=== PATIENT | female | born 1980 | race Caucasian/White ===

== ENCOUNTER 2018-12-22 16:46 | Observation (INO) ==
[2018-12-22 17:33] LABS: ABG Base Excess -0.7 mmol/L (-2.4-2.3); ABG HCO3 21.5 mmhg (22.0-26.0); ABG Oxygen Saturation 98 % (90-100); ABG PCO2 24.5 mmhg (35.0-45.0); ABG PO2 102.8 mmhg (80-100); ABG TCO2 22.2 mmhg (23-27)
[2018-12-22 17:34] LABS: Allen's Test Acceptable; Oxygen 3.5 LPM O2 NC %
[2018-12-22 17:37] LABS: ABG PH 7.56 mmol/L (7.35-7.45)
--- NOTE | 2018-12-22 18:05 | Emergency Department Note ---
ED Disposition Clinical Impression: COPD (chronic obstructive pulmonary disease), Congestive heart failure, Foot ulcer Disposition: Admitted as Observation Condition on Discharge: Good Referrals: Soha Lund [Primary Care Provider] - Time of Disposition: 19:36 - Critical Care Critical Care Time: No Attestation: On 12/22/18, the high probability of a clinically significant, sudden or life threatening deterioration of the following system(s) required my full and direct attention, intervention and personal management. The time I documented below is in addition to time spent performing reported procedures but includes the following listed in this critical care notation. Medical Decision Making - Medical Records Medical records reviewed: Yes: I reviewed the patient's medical records. - Cesar Inquiry Pt receiving controlled substance: No Cesar was queried for this patient: No Vital Signs: 12/22/18 17:03 12/22/18 17:32 12/22/18 17:53 Temperature 98.1 F Temperature Source Oral Pulse Rate 112 H Pulse Rate [Right Brachial] 133 H 124 H Respiratory Rate 28 H 20 Blood Pressure [Right Arm] 147/104 H 110/88 Blood Pressure Mean [Right Arm] 118 95 Blood Pressure Source [Right Arm] Automatic Cuff Automatic Cuff Blood Pressure Position [Right Arm] Sitting Sitting 02 Sat by Pulse Oximetry 96 Oxygen Delivery Method Room Air Nasal Cannula Oxygen Flow Rate (LPM) 3.5 12/22/18 18:46 Temperature Temperature Source Pulse Rate Pulse Rate [Right Brachial] 115 H Respiratory Rate 22 Blood Pressure [Right Arm] 144/93 H Blood Pressure Mean [Right Arm] 110 Blood Pressure Source [Right Arm] Automatic Cuff Blood Pressure Position [Right Arm] Sitting 02 Sat by Pulse Oximetry 94 L Oxygen Delivery Method Oxygen Flow Rate (LPM) - Lab Data Lab results reviewed: Yes: I reviewed the patient's lab results. Lab Results 12/22/18 17:20: Influenza Type A Ag Negative, Influenza Type B Ag Negative 12/22/18 17:29: Specimen Source Left radial, O2 % 3.5 lpm o2 nc, ABG pH 7.56 H*, ABG pCO2 24.5 L, ABG pO2 102.8 H, ABG HCO3 21.5 L, ABG Total CO2 22.2 L, ABG O2 Saturation 98, ABG Base Excess -0.7, Allan Test Acceptable 12/22/18 18:43: WBC 18.2 H, RBC 4.55, Hgb 13.3, Hct 41.3, MCV 90.9, MCH 29.2, M CHC 32.1, RDW 16.4, Plt Count 243, MPV 8.5, Neut % (Auto) 84.6 H, Lymph % (Auto) 11.5, [place] % (Auto) 3.2, Eos % (Auto) 0.4, Baso % (Auto) 0.2, Neut # (Auto) 15.4 H, Lymph # (Auto) 2.1, [place] # (Auto) 0.6, Eos # (Auto) 0.1, Baso # (Auto) 0.0, Total Counted 100, Neutrophils % (Manual) 87 H, Lymphocytes % (Manual) 9 L, Monocytes % (Manual) 4, Platelet Estimate Normal, RBC Morphology Normal 12/22/18 18:43: Sodium 141, Potassium 3.9, Chloride 103, Carbon Dioxide 26, Anion Gap 15.9 H, BUN 18, Creatinine 0.97, Estimated Creat Clear 66, Estimated GFR 65, Est GFR ( Amer) 78, Glucose 122 H, Calcium 9.3, Total Bilirubin 0.2, AST 59 H, ALT 100 H, Alkaline Phosphatase 86, Troponin I < 0.02, Total Protein 6.5, Albumin 3.1 L, Globulin 3.4 H, Albumin/Globulin Ratio 0.9 L 12/22/18 18:43: B-Natriuretic Peptide 33 12/22/18 18:43: Lactate 2.7 H Result diagrams: 12/22/18 18:43 12/22/18 18:43 Orders (Tests/Meds): ED MEDICATIONS Generic Name Dose Route Start Last Admin Trade Name Freq PRN Reason Stop Dose Admin Albuterol/Ipratropium 3 ml 12/22/18 18:15 12/22/18 18:18 Duoneb 3ml Neb IH 01/21/19 18:14 3 ml Q1H AZIZA Administration Discontinued Medications Generic Name Dose Route Start Last Admin Trade Name Freq PRN Reason Stop Dose Admin Methylprednisolone Sodium Succinate 125 mg 12/22/18 18:02 12/22/18 18:18 Solu-Medrol 125mg/2ml Vial IV 12/22/18 18:03 125 mg ONCE ONE Administration Morphine Sulfate 4 mg 12/22/18 18:46 12/22/18 18:52 Morphine 4mg/Ml Syringe IV 12/22/18 18:47 4 mg ONCE ONE Administration Ondansetron HCl 4 mg 12/22/18 18:12 12/22/18 18:18 Zofran 4mg/2ml Vial IV 12/22/18 18:13 4 mg ONCE ONE Administration ORDERS Category Date Time Status XR foot LT min 3V Stat Exams 12/22/18 18:04 Taken Blood Culture Stat Micro 12/22/18 18:43 Received Arterial Blood Gas Stat RT 12/22/18 17:11 Ordered General Adult HPI - General Chief complaint: Shortness of Breath/Dyspnea Stated complaint: soa dizziness, possible L foot infection Time Seen by Provider: 12/22/18 18:01 Mode of Arrival: Family Vehicle Source of Information: Patient, Relative Limitations: No Limitations Description of Symptoms (Recalled from ER Triage Doc. by RN): shortness of air, copd exacerbation, foot infection and pain; diarrhea x multiple days; fpc atb therapy - History of Present Illness HPI narrative: shortness of breath, sats at home 90% or less on 2 liters. wheezing, "filling up with fluids" - Related Data Home Medications Medication Instructions Recorded Confirmed Albuterol Sulfate [Albuterol HFA 1 puff INHALATION DAILY 02/25/18 12/22/18 Inhaler] Amlodipine Besylate 2.5 mg PO DAILY 02/25/18 12/22/18 Baclofen 20 mg PO DAILY 02/25/18 12/22/18 Calcium Carbonate/Vitamin D3 1 tab PO DAILY 02/25/18 12/22/18 [Calcium 600-Vit D3 400 Tablet] Ergocalciferol (Vitamin D2) 1 tab PO DAILY 02/25/18 12/22/18 [Drisdol 50,000 units (1.25mg) capsule] Fluticasone/Salmeterol [Advair 1 tab PO DAILY 02/25/18 12/22/18 500/50mcg diskus] Gabapentin [Gabapentin 800mg Tab] 800 mg PO QID 02/25/18 12/22/18 Montelukast Sodium [Montelukast 10 mg PO DAILY 02/25/18 12/22/18 10mg Tab] Pantoprazole Sodium [Protonix 40mg 40 mg PO DAILY 02/25/18 12/22/18 tablet] Quetiapine Fumarate 200 mg PO DAILY 02/25/18 12/22/18 Sucralfate [Carafate] 1 tab PO DAILY 02/25/18 12/22/18 Tiotropium [place] [Spiriva 1 puff INHALATION BID 02/25/18 12/22/18 Respimat] Topiramate 25 mg PO DAILY 02/25/18 12/22/18 Tramadol HCl [Ultram Take Home 1 tab PO DAILY 02/25/18 12/22/18 Pack 50mg (10)] clonazePAM [Clonazepam] 1 tab PO DAILY 02/25/18 12/22/18 hydrOXYzine HCl [Hydroxyzine HCl] 50 mg PO DAILY 02/25/18 12/22/18 hydroCHLOROthiazide [HCTZ 25mg 25 mg PO DAILY 02/25/18 12/22/18 tab] Furosemide [Furosemide 20mg Tab] 20 mg PO DAILY 07/16/18 12/22/18 Gabapentin 800 mg PO TID 07/16/18 12/22/18 Lisinopril [Lisinopril 20mg Tab] 20 mg PO DAILY 07/16/18 12/22/18 Oxycodone HCl/Acetaminophen 1 each PO TID 12/22/18 12/22/18 [Percocet 7.5-325 mg Tablet] Sulfamethoxazole/Trimethoprim 1 each PO BID 12/22/18 12/22/18 [Bactrim DS tablet] Sulfamethoxazole/Trimethoprim 1 each PO BID 12/22/18 12/22/18 [Bactrim DS tablet] Previous Rx's Medication Instructions Recorded Promethazine/Dextromethorphan 10 ml PO Q4HP PRN #240 ml 07/16/18 [Promethazine-Dm Syrup] Oxycodone HCl/Acetaminophen 1 each PO QID PRN 3 Days #12 tab 11/23/18 [Percocet 7.5-325 mg Tablet] Allergies Allergy/AdvReac Type Severity Reaction Status Date / Time ketorolac [From TORADOL] Allergy Intermediate Verified 02/15/18 20:50 cyclobenzaprine Allergy Unknown Verified 02/15/18 20:50 [From FLEXERIL] CONTRAST DYE Allergy Severe ANAPHYLAXIS Uncoded 04/23/17 14:49 SHELLFISH (FOOD) Allergy Intermediate ANAPHYLAXIS Uncoded 04/23/17 14:49 [facility] History - Hepatitis A Screen Drug use history?: No High risk sexual behaviors?: No History of sexually transmitted infection?: No Currently employed?: No Childcare worker?: No Do you have indoor plumbing?: Yes Do you have electricity?: Yes Attestation statement:: This patient has been screened for Hepatitis A risk factors. I have reviewed the patient's past medical history: Yes Medical History: Denies:: Diabetes Mellitus Type 1, Diabetes Mellitus Type 2 - Social History Smoking Status: Current every day smoker Tobacco Type: cigarettes # Packs/Day (cigarettes): 0 Alcohol Intake: never Occupational Status: other ROS Obtained: Yes All systems reviewed & no additional complaints - Constitutional Constitutional: Reports chills, Reports fever(s) - Cardiovascular Cardiovascular: Denies chest pain, Denies chest pain at rest, Reports diaphoresis, Reports dyspnea, Reports dyspnea on exertion - Respiratory Respiratory: Yes dyspnea, Yes dyspnea on exertion, Yes wheezing - Gastrointestinal Gastrointestingal: Reports: diarrhea, nausea - Musculoskeletal Musculoskeletal: Reports joint pain, Reports joint stiffness, Reports joint swelling, Reports other (open ulcer size of silver dollar, not grossly infected) - Integumentary/Breasts Skin/Breast: Reports skin ulcer Physical Exam - General General appearance: alert, in distress - Head Head exam: atraumatic, normocephalic, normal inspection - Eye Eye exam: Present: normal appearance, PERRL, EOMI - ENT ENT exam: Present: normal exam, normal oropharynx, mucous membranes moist, TM's normal bilaterally, normal external ear exam - Chest Chest inspection: Absent: tenderness - Respiratory Respiratory exam: Present: respiratory distress, wheezes - Cardiovascular Cardiovascular exam: Present: regular rate, normal rhythm. Absent: JVD - Abdominal Exam Abdominal exam: Present: soft, normal bowel sounds. Absent: distention, tenderness, guarding - Extremities Exam Extremities exam: Present: normal inspection, full ROM, normal capillary refill. Absent: calf tenderness - Back Exam Back exam: Present: normal inspection. Absent: tenderness - Neurological Exam Neurological exam: Present: alert, oriented X3 - Psychiatric Psychiatric exam: Present: normal affect, normal mood - Skin Skin exam: Present: dry, erythema. Absent: intact, normal color
[2018-12-22 18:55] LABS: Basophils % 0.2 % (0.1-2.0); Eosinophils # 0.1 K/mm3 (0.0-0.4); Eosinophils % 0.4 % (0.1-12.0); Hematocrit 41.3 % (37.0-47.0); Hemoglobin 13.3 g/dL (12.2-16.2); Lymphocytes # 2.1 K/mm3 (0.7-4.5); Lymphocytes % 11.5 % (10-50); Mean Corpuscular HGB Conc 32.1 g/dL (31.8-35.4); Mean Corpuscular Volume 90.9 fl (81-99); Mean Platelet Volume 8.5 fl (7.4-10.4); Monocytes # 0.6 K/mm3 (0.1-1.0); Monocytes % 3.2 % (1.7-9.3); Neutrophils # 15.4 K/mm3 (1.8-7.8); Neutrophils % 84.6 % (37.0-80.0); Platelet Count 243 K/mm3 (142-424); Red Blood Count 4.55 M/mm3 (4.20-5.40); Red Cell Distribution Width 16.4 % (11.5-17.5); White Blood Count 18.2 K/mm3 (4.8-10.8)
[2018-12-22 19:15] LABS: Lymphocytes % 9 % (10-50); Monocytes % 4 % (2-9); Neutrophils % 87 % (42-76); RBC Morphology Normal; Total Cells Counted 100
[2018-12-22 19:17] LABS: Alanine Aminotransferase 100 U/L (12-78); Albumin Level 3.1 gm/dL (3.4-5.0); Albumin/Globulin Ratio 0.9 (1.1-1.8); Alkaline Phosphatase 86 U/L (46-116); Anion Gap 15.9 mEq/L (5-15); Aspartate Amino Transferase 59 U/L (15-37); Bilirubin,Total 0.2 mg/dL (0.2-1.0); Blood Urea Nitrogen 18 mg/dL (7-18); Calcium 9.3 mg/dL (8.5-10.1); Carbon Dioxide 26 mmol/L (21.0-32.0); Chloride 103 mmol/L (98-107); Globulin 3.4 gm/dl (1.3-3.2); Glucose 122 mg/dL (74-106); Sodium 141 mmol/L (136-145); Total Protein,Serum 6.5 gm/dL (6.4-8.2)
[2018-12-23 06:06] LABS: Anion Gap 17.3 mEq/L (5-15); Calcium 8.5 mg/dL (8.5-10.1)
[2018-12-23 06:18] LABS: Mean Corpuscular HGB Conc 31.5 g/dL (31.8-35.4); Mean Corpuscular Volume 93.2 fl (81-99); Mean Platelet Volume 8.3 fl (7.4-10.4); Neutrophils % 89.5 % (37.0-80.0); Platelet Count 210 K/mm3 (142-424); Red Blood Count 4.07 M/mm3 (4.20-5.40); Red Cell Distribution Width 16.3 % (11.5-17.5)
[2018-12-23 06:19] LABS: Basophils % 0.1 % (0.1-2.0); Lymphocytes % 6.8 % (10-50); Monocytes # 0.4 K/mm3 (0.1-1.0); Monocytes % 2.8 % (1.7-9.3); Neutrophils # 13.4 K/mm3 (1.8-7.8)
--- NOTE | 2018-12-23 06:56 | History & Physical Report ---
*Admission Date: 12/22/18 *Chief complaint: SOA *History of present illness: 38 yo F with protracted history of unclear pulmonary diagnosis (IPF vs COPD versus severe asthma). She presented to the hospital due to worsening shortness of breath with sats at home less than 90 on 2 L of oxygen. States that she has been wheezing severely and having a hard time breathing due to concern for fluid overload. On initial assessment she was found to have concern for pneumonia on x-ray with respiratory alkalosis due to tachypnea and shallow breathing. Admitted to medicine for further management and initiated on antibiotics. Of note she was also found to have an infection on her foot and ulcer concerning for pressure wound with possible underlying osteomyelitis. On further history this morning, patient notes that she has been off and on of steroids for the better part of the past year. This led to weight gain of approximately 100-120 pounds. During this time she has had no significant improvement in her lung function and is continued to require oxygen. She also has had a fall as of August leading to a lesion on her foot that has been slow to heal. Lesion on the foot has continued to have purulent drainage per her report and she is concerned there is worsening infection. She has had prolonged and worsening debility due to chronic steroids and worsening respiratory function. At this time she lives with family locally. Most of her care previously has been at [facility] in [facility]. Her speech is very pressured and it is difficult to obtain a clear history from her. We will work on obtaining records from [facility] to further understand her medical history. Of note she has an extensive psychiatric history evidenced by the medication she is on from her home med list. Denies chest pain, nausea vomiting, diarrhea, fevers. [facility] History I have reviewed the patient's past medical history: Yes (Difficult to obtain however due to her poor timeline) Medical History: Reports:: Arrhythmia, Cardiomyopathy, Congestive Heart Failure, Hypertension, Palpitations Denies:: Cancer, Diabetes Mellitus Type 1, Diabetes Mellitus Type 2, MRSA *Have you ever received a pneumonia vaccine?: Yes (04/2018) *Have you received a flu vaccine this season?: No (outside of flu season) Other Surgeries: Yes: Cholecystectomy, (x 3) Amputation: No Fractures: No - *Social History Educational Level: Attended College Smoking Status: Current every day smoker Tobacco Type: cigarettes # Packs/Day (cigarettes): 1 Alcohol Intake: former Alcohol Intake Frequency:: 3 or more drinks per day *Occupational Status:: disabled *Travel in the last 8 weeks: None - Psychiatric History Expresses thoughts of harming self/others: None Suicide Plan Description: No Plan Family Hx:: Coronary Artery Disease, Diabetes, Hypertension Review of Systems - Review of Systems Review of systems:: pertinent systems reviewed and negative unless documented below Meds Home Medications Medication Instructions Recorded Confirmed Type Albuterol Sulfate [Albuterol HFA 2 puff INHALATION Q4-6H PRN 02/25/18 12/22/18 History Inhaler] Baclofen 10 mg PO BID 02/25/18 12/23/18 History Montelukast Sodium [Montelukast 10 mg PO HS 02/25/18 12/22/18 History 10mg Tab] Pantoprazole Sodium [Protonix 40mg 80 mg PO DAILY 02/25/18 12/23/18 History tablet] Amitriptyline HCl [Elavil 50mg 25 mg PO DAILY 12/22/18 12/23/18 History tablet] Bumetanide [Bumex 1mg tablet] 1 mg PO BID 12/22/18 12/22/18 History Fluoxetine HCl [Prozac 20mg 20 mg PO DAILY 12/22/18 12/23/18 History Capsule] Ipratropium/Albuterol Sulfate 3 ml IH Q4RT 12/22/18 12/22/18 History [Duoneb 3mL neb] LORazepam [Ativan 1mg tablet] 1 mg PO 5XDAY PRN 12/22/18 12/22/18 History Pregabalin [Lyrica] 50 mg PO TID 12/22/18 12/22/18 History Spironolactone [Spironolactone 25 mg PO DAILY 12/22/18 12/22/18 History 25mg Tablet] Doxycycline Hyclate [Doxycycline 100 mg PO BID 12/23/18 12/23/18 History 100mg Capsule] Fluticasone Propion/Salmeterol 1 puff IH BID 12/23/18 12/23/18 History [Wixela 500-50 Inhub] Metformin HCl 500 mg PO DAILY 12/23/18 12/23/18 History Ondansetron [Zofran 4mg ODT] 4 mg PO Q6HP PRN 12/23/18 12/23/18 History Oxycodone HCl/Acetaminophen 1 tab PO Q6H PRN 12/23/18 12/23/18 History [Percocet 5/325mg tablet] Promethazine HCl 1 - 2 tab PO Q6HP PRN 12/23/18 12/23/18 History predniSONE [Deltasone 10mg tablet] 10 mg PO DIRECTED 12/23/18 12/23/18 History Allergies Allergy/AdvReac Type Severity Reaction Status Date / Time haloperidol [From Haldol] Allergy Severe extrapyrimidal Verified 12/22/18 21:02 effects cyclobenzaprine Allergy Intermediate Hives Verified 12/22/18 21:02 [From FLEXERIL] ketorolac [From TORADOL] Allergy Intermediate Hives Verified 12/22/18 21:02 CONTRAST DYE Allergy Severe ANAPHYLAXIS Uncoded 04/23/17 14:49 SHELLFISH (FOOD) Allergy Intermediate ANAPHYLAXIS Uncoded 04/23/17 14:49 Exam Vital signs and Labs for Last 24 Hours: Temp Pulse Resp BP Pulse Ox 97.8 F 102 H 20 120/68 93 L 12/23/18 04:00 12/23/18 06:25 12/23/18 04:00 12/23/18 04:00 12/23/18 06:25 Laboratory Results - last 24 hr 12/22/18 17:20: Influenza Type A Ag Negative, Influenza Type B Ag Negative 12/22/18 17:29: Specimen Source Left radial, O2 % 3.5 lpm o2 nc, ABG pH 7.56 H*, ABG pCO2 24.5 L, ABG pO2 102.8 H, ABG HCO3 21.5 L, ABG Total CO2 22.2 L, ABG O2 Saturation 98, ABG Base Excess -0.7, Allan Test Acceptable 12/22/18 18:43: WBC 18.2 H, RBC 4.55, Hgb 13.3, Hct 41.3, MCV 90.9, MCH 29.2, MCHC 32.1, RDW 16.4, Plt Count 243, MPV 8.5, Neut % (Auto) 84.6 H, Lymph % (Auto) 11.5, [place] % (Auto) 3.2, Eos % (Auto) 0.4, Baso % (Auto) 0.2, Neut # (Auto) 15.4 H, Lymph # (Auto) 2.1, [place] # (Auto) 0.6, Eos # (Auto) 0.1, Baso # (Auto) 0.0, Total Counted 100, Neutrophils % (Manual) 87 H, Lymphocytes % (Man ual) 9 L, Monocytes % (Manual) 4, Platelet Estimate Normal, RBC Morphology Normal 12/22/18 18:43: Sodium 141, Potassium 3.9, Chloride 103, Carbon Dioxide 26, Anion Gap 15.9 H, BUN 18, Creatinine 0.97, Estimated Creat Clear 66, Estimated GFR 65, Est GFR ( Amer) 78, Glucose 122 H, Calcium 9.3, Total Bilirubin 0.2, AST 59 H, ALT 100 H, Alkaline Phosphatase 86, Troponin I < 0.02, Total Protein 6.5, Albumin 3.1 L, Globulin 3.4 H, Albumin/Globulin Ratio 0.9 L 12/22/18 18:43: B-Natriuretic Peptide 33 12/22/18 18:43: Lactate 2.7 H 12/22/18 23:10: Lactate 3.3 H 12/23/18 00:20: Lactate 6.6 H 12/23/18 05:40: WBC 15.0 H, RBC 4.07 L, Hgb 12.0 L, Hct 38.0, MCV 93.2, MCH 29.4, MCHC 31.5 L, RDW 16.3, Plt Count 210, MPV 8.3, Neut % (Auto) 89.5 H, Lymph % (Auto) 6.8 L, [place] % (Auto) 2.8, Eos % (Auto) 0.0 L, Baso % (Auto) 0.1, Neut # (Auto) 13.4 H, Lymph # (Auto) 1.0, [place] # (Auto) 0.4, Eos # (Auto) 0.0, Baso # (Auto) 0.0 12/23/18 05:40: Sodium 137, Potassium 4.3, Chloride 101, Carbon Dioxide 23, Anion Gap 17.3 H, BUN 20 H, Creatinine 1.17 H D, Estimated Creat Clear 50, Estimated GFR 52 L, Est GFR ( Amer) 63, Glucose 243 H D, Calcium 8.5 I & O for Last 24 hours: Intake & Output 12/20/18 12/21/18 12/22/18 12/23/18 23:59 23:59 23:59 23:59 Intake Total 50 / 50 1600 / 1600 Output Total 500 / 500 Balance 50 / -150 1100 / 1100 Weight 120.826 kg 120.826 kg - Constitutional mild distress, morbidly obese - *Routine HEENT Exam Head: Present: cushingoid faces Eye: Present: EOMI, PERRL ENT: Present: mucous membranes moist - *Routine Neck Exam Present: supple. Absent: lymphadenopathy - *Routine Respiratory Exam Present: prolonged expiratory phase, crackles (LLL). Absent: rhonchi, wheezes - *Routine Cardiovascular Exam Present: RRR - *Routine Abdominal Exam Present: soft, normoactive bowel sounds. Absent: tenderness - *Routine Extremities Exam Absent: cyanosis, clubbing, edema Comments: Ulcerated wound dorsum of left foot - *Routine Skin Exam Present: warm. Absent: rash Comments: Striae on arms and abdomen - *Routine Neurological Exam Present: alert, oriented X3. Absent: motor deficit, altered mental status - Routine Psychiatric Exam Comments: Pressured speech, tangential Assessment and Plan (1) Chronic steroid use Current visit: Yes Status: Acute Category: Medical Steroids for over a year. Pharmacology assisting in identifying full duration of therapy. Will review records from outside institution. Resume steroid use of stress dose of 20 mg daily. Pharmacy to assist with planned taper (2) Morbid obesity Current visit: Yes Status: Chronic Category: Medical Code(s): E66.01 - Morbid (severe) obesity due to excess calories Complicates all aspects of her care. Secondary to steroid use (3) COPD (chronic obstructive pulmonary disease) Current visit: Yes Status: Chronic Category: Medical Code(s): J44.9 - Chronic obstructive pulmonary disease, unspecified (4) Cellulitis of left foot Current visit: Yes Status: Acute Category: Medical Code(s): L03.116 - Cellulitis of left lower limb (5) Foot ulcer Current visit: Yes Status: Chronic Qualifiers: Laterality: left Non-pressure ulcer stage: limited to breakdown of skin Qualified Code(s): L97.521 - Non-pressure chronic ulcer of other part of left foot limited to breakdown of skin Category: Medical Code(s): L97.509 - Non-pressure chronic ulcer of other part of unspecified foot with unspecified severity (6) Sepsis Current visit: Yes Status: Acute Qualifiers: Sepsis type: sepsis due to unspecified organism Category: Medical Code(s): A41.9 - Sepsis, unspecified organism Pneumonia, ulceration of foot, elevated white count, tachycardia, tachypnea. Cultures obtained. Fluids administered. Antibiotics on board. Continue to monitor for defervescence. De-escalation of antibiotics when appropriate. (7) Ulcer of left foot due to type 2 diabetes mellitus Current visit: Yes Status: Chronic Category: Medical Code(s): E11.621 - Type 2 diabetes mellitus with foot ulcer; L97.529 - Non-pressure chronic ulcer of other part of left foot with unspecified severity Present for several months, podiatry consulted. Debrided at bedside. No surgical intervention at this time. Continue antibiotics for cellulitis. (8) Acute respiratory alkalosis Current visit: Yes Status: Acute Category: Medical Code(s): E87.3 - Alkalosis Due to tachypnea with shallow breathing. Anticipate improvement with addressing underlying respiratory infection and distress. (9) Pneumonia Current visit: Yes Status: Acute Qualifiers: Laterality: left Lung location: lower lobe of lung Category: Medical Code(s): J18.9 - Pneumonia, unspecified organism Suspected source of sepsis and respiratory failure. Continue antibiotics. Initiated steroids due to chronic steroid use. Monitor for improvement. Supplemental oxygen as needed for goal sats greater than 92 while awake, greater than 88 while asleep - Assessment and plan all Dx Assessment and Plan for all problems:: Critically ill. Requires continued inpatient management. Prognosis fair. Will have physical therapy and occupational therapy assess patient as she may benefit from placement in [facility] given level of debility at home and immobility.
--- NOTE | 2018-12-23 07:59 | Pharmacy Consult Notes ---
[facility] Pharmacy VTE Monitoring - Patient Demographics Admission date: 12/22/18 Report Date: 12/23/18 Time: 07:59 Allergies/Adverse Reactions: Patient Allergies haloperidol [From Haldol] Allergy (Severe, Verified 12/22/18 21:02) extrapyrimidal effects cyclobenzaprine [From FLEXERIL] Allergy (Intermediate, Verified 12/22/18 21:02) Hives ketorolac [From TORADOL] Allergy (Intermediate, Verified 12/22/18 21:02) Hives CONTRAST DYE Allergy (Severe, Uncoded 04/23/17 14:49) ANAPHYLAXIS SHELLFISH (FOOD) Allergy (Intermediate, Uncoded 04/23/17 14:49) ANAPHYLAXIS Height: 1.55 m Weight: 120.826 kg Patient Problems: Current Active Problems COPD (chronic obstructive pulmonary disease) (Acute) Foot ulcer (Acute) Congestive heart failure (Acute) Sepsis (Acute) - VTE Risk Labs: VTE Related Lab Results Hgb 12.0 g/dL (12.2-16.2) L 12/23/18 05:40 Hct 38.0 % (37.0-47.0) 12/23/18 05:40 Plt Count 210 K/mm3 (142-424) 12/23/18 05:40 BUN 20 mg/dL (7-18) H 12/23/18 05:40 Creatinine 1.17 mg/dL (0.55-1.02) H D 12/23/18 05:40 Estimated Creat Clear 50 mL/min (50-200) 12/23/18 05:40 Was VTE Risk Assessment Performed: Yes VTE Score: 8 VTE Risk Level: Moderate Risk - Prophylaxis VTE Prophylaxis Ordered?: Yes Types of VTE Prophylaxis: TEDS Knee High Location of Applied Device: Bilateral Lower Extremeties - VTE Diagnosis Confirmed Treatment or plan recommended: Continue Current Treatment
[2018-12-23 08:27] LABS: Lymphocytes % 7 % (10-50); Monocytes % 2 % (2-9); Neutrophils % 90 % (42-76); Total Cells Counted 100
--- NOTE | 2018-12-23 12:33 | Consult Report ---
*Admission Date: 12/22/18 *Reason for consult:: Left foot DM ulcer *History of present illness: Ms. Ro is a 38-year-old female who was admitted 12/22/18 for shortness of breath, COPD exacerbation and a left foot ulcer. Patient states that she has had the ulcer several months now. She states it started 3-4 months ago as a skin abrasion which kept getting larger. Patient states that she is seeing Dr. Kumar in [facility]. She was doing local wound care with antibiotics. She reports wound cultures growing Pseudomonas. She was on a variety of oral antibiotics at least 3 different ones, patient unsure which. She states that Dr. Kumar performed 2 different surgeries on her with a wound debridement and the second surgery included wound debridement with a placement of a placental amniotic graft. She states there was infection in the graft "did not work". He states that he has been an open sore now for several months and it has never closed. She reports tenderness directly to the ulcer. The redness and swelling comes and goes. She denies having an MRI or bone biopsy. Review of Systems - Review of Systems Review of systems:: pertinent systems reviewed and negative unless documented below - Constitutional Reports fatigue - Eyes Denies blurry vision - ENT Denies abnormal hearing - *Cardiovascular Reports shortness of breath, Denies chest pain - *Respiratory Reports shortness of breath - *Gastrointestinal Denies abdominal pain, Denies vomiting - *Genitourinary Denies difficulty urinating - *Musculoskeletal Reports joint swelling, Reports tingling - Integumentary/Breasts Reports change in hair, Reports non-healing lesions, Reports skin ulcer - *Neurologic Reports tingling/numbness/burning sensations - Psychiatric Reports anxiety - Endocrine Reports cold intolerance - Hematologic/Lymphatic Reports easy bruising [facility] History I have reviewed the patient's past medical history: Yes Medical History: Reports:: Arrhythmia, Cardiomyopathy, Congestive Heart Failure, Hypertension, Palpitations Denies:: Cancer, Diabetes Mellitus Type 1, Diabetes Mellitus Type 2, MRSA *Have you ever received a pneumonia vaccine?: Yes (04/2018) *Have you received a flu vaccine this season?: No (outside of flu season) Other Surgeries: Yes: Cholecystectomy, (x 3) Amputation: No Fractures: No - *Social History Educational Level: Attended College Smoking Status: Current every day smoker Tobacco Type: cigarettes # Packs/Day (cigarettes): 1 Alcohol Intake: former Alcohol Intake Frequency:: 3 or more drinks per day *Occupational Status:: disabled *Travel in the last 8 weeks: None - Psychiatric History Expresses thoughts of harming self/others: None Suicide Plan Description: No Plan Family Hx:: Coronary Artery Disease, Diabetes, Hypertension Meds Home Medications Medication Instructions Recorded Confirmed Type Albuterol Sulfate [Albuterol HFA 2 puff INHALATION Q4-6H PRN 02/25/18 12/22/18 History Inhaler] Baclofen 10 mg PO BID 02/25/18 12/23/18 History Montelukast Sodium [Montelukast 10 mg PO HS 02/25/18 12/22/18 History 10mg Tab] Pantoprazole Sodium [Protonix 40mg 80 mg PO DAILY 02/25/18 12/23/18 History tablet] Amitriptyline HCl [Elavil 50mg 25 mg PO DAILY 12/22/18 12/23/18 History tablet] Bumetanide [Bumex 1mg tablet] 1 mg PO BID 12/22/18 12/22/18 History Fluoxetine HCl [Prozac 20mg 20 mg PO DAILY 12/22/18 12/23/18 History Capsule] Ipratropium/Albuterol Sulfate 3 ml IH Q4RT 12/22/18 12/22/18 History [Duoneb 3mL neb] LORazepam [Ativan 1mg tablet] 1 mg PO 5XDAY PRN 12/22/18 12/22/18 History Pregabalin [Lyrica] 50 mg PO TID 12/22/18 12/22/18 History Spironolactone [Spironolactone 25 mg PO DAILY 12/22/18 12/22/18 History 25mg Tablet] Doxycycline Hyclate [Doxycycline 100 mg PO BID 12/23/18 12/23/18 History 100mg Capsule] Fluticasone Propion/Salmeterol 1 puff IH BID 12/23/18 12/23/18 History [Wixela 500-50 Inhub] Metformin HCl 500 mg PO DAILY 12/23/18 12/23/18 History Ondansetron [Zofran 4mg ODT] 4 mg PO Q6HP PRN 12/23/18 12/23/18 History Oxycodone HCl/Acetaminophen 1 tab PO Q6H PRN 12/23/18 12/23/18 History [Percocet 5/325mg tablet] Promethazine HCl 1 - 2 tab PO Q6HP PRN 12/23/18 12/23/18 History predniSONE [Deltasone 10mg tablet] 10 mg PO DIRECTED 12/23/18 12/23/18 History Allergies Allergy/AdvReac Type Severity Reaction Status Date / Time haloperidol [From Haldol] Allergy Severe extrapyrimidal Verified 12/22/18 21:02 effects cyclobenzaprine Allergy Intermediate Hives Verified 12/22/18 21:02 [From FLEXERIL] ketorolac [From TORADOL] Allergy Intermediate Hives Verified 12/22/18 21:02 CONTRAST DYE Allergy Severe ANAPHYLAXIS Uncoded 04/23/17 14:49 SHELLFISH (FOOD) Allergy Intermediate ANAPHYLAXIS Uncoded 04/23/17 14:49 Exam Vital signs and Labs for Last 24 Hours: Temp Pulse Resp BP Pulse Ox 98.4 F 108 H 18 129/79 96 12/23/18 08:00 12/23/18 10:15 12/23/18 08:00 12/23/18 08:00 12/23/18 10:15 Laboratory Results - last 24 hr 12/22/18 17:20: Influenza Type A Ag Negative, Influenza Type B Ag Negative 12/22/18 17:29: Specimen Source Left radial, O2 % 3.5 lpm o2 nc, ABG pH 7.56 H*, ABG pCO2 24.5 L, ABG pO2 102.8 H, ABG HCO3 21.5 L, ABG Total CO2 22.2 L, ABG O2 Saturation 98, ABG Base Excess -0.7, Allan Test Acceptable 12/22/18 18:43: WBC 18.2 H, RBC 4.55, Hgb 13.3, Hct 41.3, MCV 90.9, MCH 29.2, MCHC 32.1, RDW 16.4, Plt Count 243, MPV 8.5, Neut % (Auto) 84.6 H, Lymph % (Auto) 11.5, Moca % (Auto) 3.2, Eos % (Auto) 0.4, Baso % (Auto) 0.2, Neut # (Auto) 15.4 H, Lymph # (Auto) 2.1, Moca # (Auto) 0.6, Eos # (Auto) 0.1, Baso # (Auto) 0.0, Total Counted 100, Neutrophils % (Manual) 87 H, Lymphocytes % (Manual) 9 L, Monocytes % (Manual) 4, Platelet Estimate Normal, RBC Morphology Normal 12/22/18 18:43: Sodium 141, Potassium 3.9, Chloride 103, Carbon Dioxide 26, Anion Gap 15.9 H, BUN 18, Creatinine 0.97, Estimated Creat Clear 66, Estimated GFR 65, Est GFR ( Amer) 78, Glucose 122 H, Calcium 9.3, Total Bilirubin 0.2, AST 59 H, ALT 100 H, Alkaline Phosphatase 86, Troponin I < 0.02, Total Protein 6.5, Albumin 3.1 L, Globulin 3.4 H, Albumin/Globulin Ratio 0.9 L 12/22/18 18:43: B-Natriuretic Peptide 33 12/22/18 18:43: Lactate 2.7 H 12/22/18 23:10: Lactate 3.3 H 12/23/18 00:20: Lactate 6.6 H 12/23/18 05:40: WBC 15.0 H, RBC 4.07 L, Hgb 12.0 L, Hct 38.0, MCV 93.2, MCH 29.4, MCHC 31.5 L, RDW 16.3, Plt Count 210, MPV 8.3, Neut % (Auto) 89.5 H, Lymph % (Auto) 6.8 L, Moca % (Auto) 2.8, Eos % (Auto) 0.0 L, Baso % (Auto) 0.1, Neut # (Auto) 13.4 H, Lymph # (Auto) 1.0, Moca # (Auto) 0.4, Eos # (Auto) 0.0, Baso # (Auto) 0.0, Total Counted 100, Neutrophils % (Manual) 90 H, Band Neutrophils % 1.0, Lymphocytes % (Manual) 7 L, Monocytes % (Manual) 2, Platelet Estimate Normal 12/23/18 05:40: Sodium 137, Potassium 4.3, Chloride 101, Carbon Dioxide 23, Anion Gap 17.3 H, BUN 20 H, Creatinine 1.17 H D, Estimated Creat Clear 50, Estimated GFR 52 L, Est GFR ( Amer) 63, Glucose 243 H D, Calcium 8.5 12/23/18 05:40: ESR 18 12/23/18 05:40: C-Reactive Protein 1.2 H 12/23/18 05:40: Hemoglobin A1c 8.0 H I & O for Last 24 hours: Intake & Output 12/21/18 12/22/18 12/23/18 12/24/18 11:59 11:59 11:59 11:59 Intake Total 2130 / 2130 Output Total 500 / 500 Balance 1630 / 1630 Weight 266 lb 6 oz - *Routine HEENT Exam Head: Present: normocephalic - *Routine Neck Exam Present: supple - *Routine Respiratory Exam Present: accessory muscle use. Absent: respiratory distress - *Routine Cardiovascular Exam Present: RRR - *Routine Abdominal Exam Present: soft. Absent: guarding - *Routine Rectal Exam Patient deferred: visual exam - *Routine Exam Patient deferred: external exam - *Routine Extremities Exam Present: edema, pulses intact - *Routine Skin Exam Present: wounds - *Routine Neurological Exam Present: alert, moving all extremities - Routine Psychiatric Exam Present: anxious - Detailed Lower Extremity Exam Top foot image: 1 - Left foot ulcer: There is an area of edema and erythema to the dorsal left foot. The area measures approximately 3 x 4 cm. Within the red area there is an ulcer with mixed wound base. Wound base is 50% granular, 50% fibrotic tissue. The ulcer measures approximately 2.2 x 1.6 x 0.4 cm. There is no purulence, malodor and no sinus tracking. No drainage noted. POP. Comments: Skin temp wnl. CFT and palpable pedal pulses noted. No calf or thigh pain noted b/l. POP to left dorsal foot around ulcer. Results - Labs Result Diagrams: 12/23/18 05:40 12/23/18 05:40 Labs: Abnormal lab results 12/22/18 12/22/18 12/22/18 Range/Units 17:29 18:43 18:43 WBC 18.2 H (4.8-10.8) K/mm3 RBC (4.20-5.40) M/mm3 Hgb (12.2-16.2) g/dL MCHC (31.8-35.4) g/dL Neut % (Auto) 84.6 H (37.0-80.0) % Lymph % (Auto) (10-50) % Eos % (Auto) (0.1-12.0) % Neut # (Auto) 15.4 H (1.8-7.8) K/mm3 Neutrophils % (Manual) 87 H (42-76) % Lymphocytes % (Manual) 9 L (10-50) % ABG pH 7.56 H* (7.35-7.45) mmol/L ABG pCO2 24.5 L (35.0-45.0) mmhg ABG pO2 102.8 H (80-100) mmhg ABG HCO3 21.5 L (22.0-26.0) mmhg ABG Total CO2 22.2 L (23-27) mmhg Anion Gap 15.9 H (5-15) mEq/L BUN (7-18) mg/dL Creatinine (0.55-1.02) mg/dL Estimated GFR (>60) ml/min Glucose 122 H (74-106) mg/dL Hemoglobin A1c (0.0-7.0) % Lactate (0.4-2.0) mmol/L AST 59 H (15-37) U/L ALT 100 H (12-78) U/L C-Reactive Protein (0.0-0.9) mg/dL Albumin 3.1 L (3.4-5.0) gm/dL Globulin 3.4 H (1.3-3.2) gm/dl Albumin/Globulin Ratio 0.9 L (1.1-1.8) 12/22/18 12/22/18 12/23/18 Range/Units 18:43 23:10 00:20 WBC (4.8-10.8) K/mm3 RBC (4.20-5.40) M/mm3 Hgb (12.2-16.2) g/dL MCHC (31.8-35.4) g/dL Neut % (Auto) (37.0-80.0) % Lymph % (Auto) (10-50) % Eos % (Auto) (0.1-12.0) % Neut # (Auto) (1.8-7.8) K/mm3 Neutrophils % (Manual) (42-76) % Lymphocytes % (Manual) (10-50) % ABG pH (7.35-7.45) mmol/L ABG pCO2 (35.0-45.0) mmhg ABG pO2 (80-100) mmhg ABG HCO3 (22.0-26.0) mmhg ABG Total CO2 (23-27) mmhg Anion Gap (5-15) mEq/L BUN (7-18) mg/dL Creatinine (0.55-1.02) mg/dL Estimated GFR (>60) ml/min Glucose (74-106) mg/dL Hemoglobin A1c (0.0-7.0) % Lactate 2.7 H 3.3 H 6.6 H (0.4-2.0) mmol/L AST (15-37) U/L ALT (12-78) U/L C-Reactive Protein (0.0-0.9) mg/dL Albumin (3.4-5.0) gm/dL Globulin (1.3-3.2) gm/dl Albumin/Globulin Ratio (1.1-1.8) 12/23/18 12/23/18 12/23/18 Range/Units 05:40 05:40 05:40 WBC 15.0 H (4.8-10.8) K/mm3 RBC 4.07 L (4.20-5.40) M/mm3 Hgb 12.0 L (12.2-16.2) g/dL MCHC 31.5 L (31.8-35.4) g/dL Neut % (Auto) 89.5 H (37.0-80.0) % Lymph % (Auto) 6.8 L (10-50) % Eos % (Auto) 0.0 L (0.1-12.0) % Neut # (Auto) 13.4 H (1.8-7.8) K/mm3 Neutrophils % (Manual) 90 H (42-76) % Lymphocytes % (Manual) 7 L (10-50) % ABG pH (7.35-7.45) mmol/L ABG pCO2 (35.0-45.0) mmhg ABG pO2 (80-100) mmhg ABG HCO3 (22.0-26.0) mmhg ABG Total CO2 (23-27) mmhg Anion Gap 17.3 H (5-15) mEq/L BUN 20 H (7-18) mg/dL Creatinine 1.17 H D (0.55-1.02) mg/dL Estimated GFR 52 L (>60) ml/min Glucose 243 H D (74-106) mg/dL Hemoglobin A1c (0.0-7.0) % Lactate (0.4-2.0) mmol/L AST (15-37) U/L ALT (12-78) U/L C-Reactive Protein 1.2 H (0.0-0.9) mg/dL Albumin (3.4-5.0) gm/dL Globulin (1.3-3.2) gm/dl Albumin/Globulin Ratio (1.1-1.8) 12/23/18 Range/Units 05:40 WBC (4.8-10.8) K/mm3 RBC (4.20-5.40) M/mm3 Hgb (12.2-16.2) g/dL MCHC (31.8-35.4) g/dL Neut % (Auto) (37.0-80.0) % Lymph % (Auto) (10-50) % Eos % (Auto) (0.1-12.0) % Neut # (Auto) (1.8-7.8) K/mm3 Neutrophils % (Manual) (42-76) % Lymphocytes % (Manual) (10-50) % ABG pH (7.35-7.45) mmol/L ABG pCO2 (35.0-45.0) mmhg ABG pO2 (80-100) mmhg ABG HCO3 (22.0-26.0) mmhg ABG Total CO2 (23-27) mmhg Anion Gap (5-15) mEq/L BUN (7-18) mg/dL Creatinine (0.55-1.02) mg/dL Estimated GFR (>60) ml/min Glucose (74-106) mg/dL Hemoglobin A1c 8.0 H (0.0-7.0) % Lactate (0.4-2.0) mmol/L AST (15-37) U/L ALT (12-78) U/L C-Reactive Protein (0.0-0.9) mg/dL Albumin (3.4-5.0) gm/dL Globulin (1.3-3.2) gm/dl Albumin/Globulin Ratio (1.1-1.8) H & H 12/22/18 12/23/18 Range/Units 18:43 05:40 Hgb 13.3 12.0 L (12.2-16.2) g/dL Hct 41.3 38.0 (37.0-47.0) % All other labs normal. - Diagnostic results Ankle/Foot x-ray: report reviewed, image reviewed Assessment and Plan (1) Ulcer of left foot due to type 2 diabetes mellitus Current visit: Yes Status: Acute Category: Medical Code(s): E11.621 - Type 2 diabetes mellitus with foot ulcer; L97.529 - Non-pressure chronic ulcer of other part of left foot with unspecified severity (2) Left foot pain Current visit: Yes Status: Acute Category: Medical Code(s): M79.672 - Pain in left foot (3) Cellulitis of left foot Current visit: Yes Status: Acute Category: Medical Code(s): L03.116 - Cellulitis of left lower limb - Assessment and plan all Dx Assessment and Plan for all problems:: Infected Wound: left dorsal foot DM ulcer: I discussed with the patient the importance of proper hygiene and maintaining a clean healthy wound bed to avoid the infection spreading. The wound was cleansed with saline. POP. Wound not debridement sharply at bedside. Discussed obtaining MRI left foot to rule out underlying osteomyelitis. 1. Dressing applied: saline soaked 4x4, dry sterile dressing 2. Wound care instructions given: change dressing daily 3. NWB in post op shoe with DME assistance 4. Order infection panel: WBC 15, ESR 18, CRP 1.2, Ha1c 8%, wound culture. 5. Continue antibiotics 6. Call the office immediately if pain increases or signs of infection worsen 7. Will follow up after MRI MRI w/wout left foot: IMPRESSION: Limited exam secondary to motion artifact. Subcutaneous soft tissue swelling along the dorsal aspect of the forefoot anterior laterally consistent with cellulitis. No abscess or osteomyelitis apparent. Plan: 1. I reviewed discussed the MRI with the patient. I explained that there is no deep bone infection. 2. Bedside debridement. The wound was cleansed with saline. Utilizing a sharp curette the wound was sharply excisionally debrided through skin into subcutaneous tissue. There was no sinus tracking or deep area that probe to bone. Post debridement the wound was 2.2 x 1.7 x 0.2 cm. The wound base was 80% granular and 20% fibrotic with no purulence or drainage noted. 3. Betadine dry sterile dressing applied to the left foot. 4. Continue antibiotics 5. Discussed plan of care with Dr. Nicole, no surgical intervention planned at this time 6. Plan for dressing change tomorrow
--- NOTE | 2018-12-24 08:11 | Progress Note ---
Internal Medicine - PN: Subj *Date: 12/24/18 *Time: 08:10 Interval history: Overnight patient continued to have some dyspnea issues, has had some subjective fevers and chills. Continues to struggle with pain from her recent ankle debridement. Exam Vital signs and Labs for Last 24 Hours: Temp Pulse Resp BP Pulse Ox 98.2 F 88 18 152/82 H 96 12/24/18 04:00 12/24/18 06:07 12/24/18 04:00 12/24/18 04:00 12/24/18 06:07 Laboratory Results - last 24 hr 12/23/18 05:40: Total Counted 100, Neutrophils % (Manual) 90 H, Band Neutrophils % 1.0, Lymphocytes % (Manual) 7 L, Monocytes % (Manual) 2, Platelet Estimate Normal 12/23/18 05:40: ESR 18 12/23/18 05:40: C-Reactive Protein 1.2 H 12/23/18 05:40: Hemoglobin A1c 8.0 H 12/23/18 09:11: POC Glucose 207 H I & O for Last 24 hours: Intake & Output 12/21/18 12/22/18 12/23/18 12/24/18 11:59 11:59 11:59 11:59 Intake Total 2130 / 2130 3881 / 3881 Output Total 500 / 500 Balance 1630 / 1630 3881 / 3881 Weight 266 lb 6 oz 272 lb 6.4 oz Narrative: Patient is alert, responsive to commands, pleasant and talkative. Morbid obesity limits accuracy of exam. Lungs have fairly good air entry. Some scattered rhonchi. Wearing oxygen and appears well oxygenated. Abdomen is obese and soft. Heart rate regular. Extremities show obesity related edema. IV in the right ankle. Bandage from debridement on the left ankle. Assessment and Plan (1) Chronic steroid use Current visit: Yes Status: Acute Category: Medical (2) Morbid obesity Current visit: Yes Status: Chronic Category: Medical Code(s): E66.01 - Morbid (severe) obesity due to excess calories (3) COPD (chronic obstructive pulmonary disease) Current visit: Yes Status: Chronic Category: Medical Code(s): J44.9 - Chronic obstructive pulmonary disease, unspecified (4) Cellulitis of left foot Current visit: Yes Status: Acute Category: Medical Code(s): L03.116 - Cellulitis of left lower limb (5) Foot ulcer Current visit: Yes Status: Chronic Qualifiers: Laterality: left Non-pressure ulcer stage: limited to breakdown of skin Qualified Code(s): L97.521 - Non-pressure chronic ulcer of other part of left foot limited to breakdown of skin Category: Medical Code(s): L97.509 - Non-pressure chronic ulcer of other part of unspecified foot with unspecified severity (6) Sepsis Current visit: Yes Status: Acute Qualifiers: Sepsis type: sepsis due to unspecified organism Category: Medical Code(s): A41.9 - Sepsis, unspecified organism (7) Ulcer of left foot due to type 2 diabetes mellitus Current visit: Yes Status: Chronic Category: Medical Code(s): E11.621 - Type 2 diabetes mellitus with foot ulcer; L97.529 - Non-pressure chronic ulcer of other part of left foot with unspecified severity (8) Acute respiratory alkalosis Current visit: Yes Status: Acute Category: Medical Code(s): E87.3 - Alkalosis (9) Pneumonia Current visit: Yes Status: Acute Qualifiers: Laterality: left Lung location: lower lobe of lung Category: Medical Code(s): J18.9 - Pneumonia, unspecified organism - Assessment and plan all Dx Assessment and Plan for all problems:: Patient's metabolic status has improved. I reviewed labs from this morning. Plan will be to add Mucomyst for sputum clearance to try to obtain a sputum culture. Continue current therapy otherwise. PT/OT consult for assessment for home safe ty issues.
--- NOTE | 2018-12-24 12:14 | Progress Note ---
Subjective Date: 12/24/18 Time: 08:35 Principal diagnosis: Left foot DM ulcer Interval history: Patient resting comfortably in bed. She reports some burning tingling pain to the feet. PN: Obj Ex Vital signs: Temp Pulse Resp BP Pulse Ox 98.5 F 95 H 19 158/88 H 98 12/24/18 11:18 12/24/18 11:18 12/24/18 11:18 12/24/18 11:18 12/24/18 11:18 - Constitutional no acute distress - Routine HEENT Exam Head: Present: normocephalic - Routine Neck Exam Present: supple - Routine Respiratory Exam Absent: respiratory distress - Routine Abdominal Exam Absent: guarding - Routine Extremities Exam Present: edema (L foot), normal capillary refill - Detailed Lower Extremity Exam Top foot image: 1 - Left foot ulcer: There is an area of edema and erythema to the dorsal left foot. The area measures approximately 3 x 4 cm. Within the red area there is an ulcer with mixed wound base. Wound base is 70% granular, 30% fibrotic tissue. The ulcer measures approximately 2.2 x 1.6 x 0.4 cm. There is no purulence, malodor and no sinus tracking. No drainage noted. POP. Comments: Skin temp wnl. CFT and palpable pedal pulses noted. No calf or thigh pain noted b/l. POP to left dorsal foot around ulcer. Progress Note: A&P (1) Chronic steroid use Status: Acute Current Visit: Yes (2) Morbid obesity Status: Chronic Current Visit: Yes (3) COPD (chronic obstructive pulmonary disease) Status: Chronic Current Visit: Yes (4) Cellulitis of left foot Status: Acute Current Visit: Yes (5) Foot ulcer Status: Chronic Current Visit: Yes (6) Sepsis Status: Acute Current Visit: Yes (7) Ulcer of left foot due to type 2 diabetes mellitus Status: Chronic Current Visit: Yes (8) Acute respiratory alkalosis Status: Acute Current Visit: Yes (9) Pneumonia Status: Acute Current Visit: Yes Assessment and Plan for All Diagnoses:: Infected Wound: left dorsal foot DM ulcer: I discussed with the patient the importance of proper hygiene and maintaining a clean healthy wound bed to avoid the infection spreading. The wound was cleansed with saline. POP. Wound not debridement sharply at bedside due to pain. 1. Dressing applied: betadine soaked 4x4, dry sterile dressing 2. Wound care instructions given: change dressing daily 3. PWB in post op shoe with DME assistance 4. Continue antibiotics 5. Call the office immediately if pain increases or signs of infection worsen 6. Discussed plan of care with Dr. Prater, no surgical intervention planned at this time 7. Patient okay from a podiatry standpoint to be discharged with antibiotics and local wound care. 8. Health care orders: -Daily dressing changes to the left foot -Clean the left foot with saline or Betadine, pat the area dry -Applied Betadine soaked 4 x 4, dry 4 x 4, secured with Ava/Kerlix and tape -Okay for home health care/wound care to use collagen or silver dressings 9. Follow up in 1-2 weeks outpatient
[2018-12-25 06:41] LABS: Basophils % 0.2 % (0.1-2.0); Eosinophils # 0.1 K/mm3 (0.0-0.4); Eosinophils % 0.5 % (0.1-12.0); Hematocrit 39.7 % (37.0-47.0); Hemoglobin 12.5 g/dL (12.2-16.2); Lymphocytes # 3.2 K/mm3 (0.7-4.5); Lymphocytes % 24.8 % (10-50); Mean Corpuscular HGB Conc 31.5 g/dL (31.8-35.4); Mean Corpuscular Volume 93.7 fl (81-99); Mean Platelet Volume 8.1 fl (7.4-10.4); Monocytes # 0.6 K/mm3 (0.1-1.0); Monocytes % 4.7 % (1.7-9.3); Neutrophils # 8.9 K/mm3 (1.8-7.8); Neutrophils % 69.9 % (37.0-80.0); Platelet Count 218 K/mm3 (142-424); Red Blood Count 4.24 M/mm3 (4.20-5.40); Red Cell Distribution Width 16.2 % (11.5-17.5); White Blood Count 12.8 K/mm3 (4.8-10.8)
[2018-12-25 06:52] LABS: Anion Gap 9.3 mEq/L (5-15); Calcium 8.1 mg/dL (8.5-10.1)
--- NOTE | 2018-12-25 08:42 | Progress Note ---
Internal Medicine - PN: Subj *Date: 12/25/18 *Time: 08:36 Interval history: Patient has been stable overnight. Tolerating p.o. intake. Shortness of breath at baseline. Continues to complain of pain from wound in left foot. Denies fevers, chest pain, nausea vomiting. Long discussion this morning about how patient's pain is inadequately controlled and she needs a different regimen for home at time of discharge. 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 Patient social situation concerning due to the fact she lives with several smokers even in the setting of her severe lung disease. Further history elicits that she had smoked approximately 3 packs a day for at least 20 if not 30 years. Exam Vital signs and Labs for Last 24 Hours: Temp Pulse Resp BP Pulse Ox 98.6 F 98 H 21 141/82 H 97 12/25/18 04:00 12/25/18 06:12 12/25/18 04:00 12/25/18 04:00 12/25/18 06:12 Laboratory Results - last 24 hr 12/25/18 06:03: WBC 12.8 H, RBC 4.24, Hgb 12.5, Hct 39.7, MCV 93.7, MCH 29.5, MCHC 31.5 L, RDW 16.2, Plt Count 218, MPV 8.1, Neut % (Auto) 69.9, Lymph % (Auto) 24.8, Mcmullen % (Auto) 4.7, Eos % (Auto) 0.5, Baso % (Auto) 0.2, Neut # (Auto) 8.9 H, Lymph # (Auto) 3.2, Mcmullen # (Auto) 0.6, Eos # (Auto) 0.1, Baso # (Auto) 0.0 12/25/18 06:03: Sodium 142, Potassium 3.3 L D, Chloride 104, Carbon Dioxide 32 D, Anion Gap 9.3, BUN 13 D, Creatinine 0.76 D, Estimated Creat Clear 76, Estimated GFR 86, Est GFR ( Amer) 104 D, Glucose 111 H, Calcium 8.1 L I & O for Last 24 hours: Intake & Output 12/22/18 12/23/18 12/24/18 12/25/18 23:59 23:59 23:59 23:59 Intake Total 50 / 50 3947 / 3947 3334 / 3774 3547 / 3547 Output Total 500 / 500 1999 / 1999 3100 / 3100 Balance 50 / -150 3447 / 3447 1334 / 1774 447 / 447 Weight 120.826 kg 120.826 kg 123.559 kg 123.604 kg Microbiology Reports for the Last 24 Hours: Microbiology 12/22/18 18:43 Blood Blood Culture - Preliminary NO GROWTH AFTER 48 HOURS 12/22/18 18:43 Blood Blood Culture - Preliminary NO GROWTH AFTER 48 HOURS Narrative: Patient is alert, responsive to commands, pleasant and talkative, cushingoid faces. Morbid obesity limits accuracy of exam. Lungs have fairly good air entry with diffuse wheeze. Wearing oxygen and appears well oxygenated. Abdomen is obese and soft. striae present, Heart rate regular, no murmurs Extremities show obesity related edema. IV in the right ankle. Bandage from debridement on the left ankle with betadine. Assessment and Plan (1) Chronic steroid use Current visit: Yes Status: Acute Category: Medical (2) Morbid obesity Current visit: Yes Status: Chronic Category: Medical Code(s): E66.01 - Morbid (severe) obesity due to excess calories (3) COPD (chronic obstructive pulmonary disease) Current visit: Yes Status: Chronic Category: Medical Code(s): J44.9 - Chronic obstructive pulmonary disease, unspecified (4) Cellulitis of left foot Current visit: Yes Status: Acute Category: Medical Code(s): L03.116 - Cellulitis of left lower limb (5) Foot ulcer Current visit: Yes Status: Chronic Qualifiers: Laterality: left Non-pressure ulcer stage: limited to breakdown of skin Qualified Code(s): L97.521 - Non-pressure chronic ulcer of other part of left foot limited to breakdown of skin Category: Medical Code(s): L97.509 - Non-pressure chronic ulcer of other part of unspecified foot with unspecified severity (6) Sepsis Current visit: Yes Status: Acute Qualifiers: Sepsis type: sepsis due to unspecified organism Category: Medical Code(s): A41.9 - Sepsis, unspecified organism (7) Ulcer of left foot due to type 2 diabetes mellitus Current visit: Yes Status: Chronic Category: Medical Code(s): E11.621 - Type 2 diabetes mellitus with foot ulcer; L97.529 - Non-pressure chronic ulcer of other part of left foot with unspecified severity (8) Acute respiratory alkalosis Current visit: Yes Status: Acute Category: Medical Code(s): E87.3 - Alkalosis (9) Pneumonia Current visit: Yes Status: Acute Qualifiers: Laterality: left Lung location: lower lobe of lung Category: Medical Code(s): J18.9 - Pneumonia, unspecified organism - Assessment and plan all Dx Assessment and Plan for all problems:: 38-year-old female with complex pulmonary disease. Showing slow improvement with current regimen. Has been assessed by physical therapy and deemed appropriate for home health. Podiatry continuing to follow for foot wound. At this time patient is nearing appropriateness for discharge. We will plan for steroid taper, completing antibiotic course, inhaled corticosteroid/LABA combo, additionally will need to have formal plan for patient's pain regimen given her request today and extended use since August. Plan to have patient follow-up with pulmonology at [facility] after discharge to further assess her underlying lung disease and help differentiate between severe asthma and severe COPD. Continues to require inpatient acute admission, anticipate discharge likely tomorrow
--- NOTE | 2018-12-25 10:03 | Progress Note ---
Subjective Date: 12/25/18 Time: 09:30 Principal diagnosis: Left foot DM ulcer Interval history: Patient is laying comfortably in bed. She complains of pain to the left foot. She states pain is not just during debridement but continual "burning aching stabbing pain that is lasted over 4 months". PN: Obj Ex Vital signs: Temp Pulse Resp BP Pulse Ox 98.0 F 113 H 22 130/94 H 93 L 12/25/18 08:00 12/25/18 08:00 12/25/18 08:00 12/25/18 08:00 12/25/18 08:00 - Constitutional no acute distress - Routine HEENT Exam Head: Present: normocephalic - Routine Neck Exam Present: supple - Routine Extremities Exam Present: edema, pulses intact - Detailed Lower Extremity Exam Top foot image: 1 - Left foot ulcer: There is an area of edema and erythema to the dorsal left foot. The area measures approximately 3 x 3 cm. Within the red area there is an ulcer with mixed wound base. Wound base is 80% granular, 20% fibrotic tissue. The ulcer measures approximately 2.5 x 2.4 x 0.3 cm. There is no purulence, malodor and no sinus tracking. No drainage noted. POP. Comments: Skin temp wnl. CFT and palpable pedal pulses noted. No calf or thigh pain noted b/l. POP to left dorsal foot around ulcer. Progress Note: A&P (1) Chronic steroid use Status: Acute Current Visit: Yes (2) Morbid obesity Status: Chronic Current Visit: Yes (3) COPD (chronic obstructive pulmonary disease) Status: Chronic Current Visit: Yes (4) Cellulitis of left foot Status: Acute Current Visit: Yes (5) Foot ulcer Status: Chronic Current Visit: Yes (6) Sepsis Status: Acute Current Visit: Yes (7) Ulcer of left foot due to type 2 diabetes mellitus Status: Chronic Current Visit: Yes (8) Acute respiratory alkalosis Status: Acute Current Visit: Yes (9) Pneumonia Status: Acute Current Visit: Yes Assessment and Plan for All Diagnoses:: Left foot DM ulcer: I discussed with the patient the importance of proper hygiene and maintaining a clean healthy wound bed to avoid the infection spreading. The wound was cleansed with saline. POP. Utilizing a sharp curette the wound was sharply excisionally debrided through skin into subcutaneous tissue. There was no sinus tracking or deep area that probe to bone. Post debridement the wound was 2.5 x 2.4 x 0.3 cm. The wound base was 80% granular and 20% fibrotic with no purulence or drai nage noted. 1. Dressing applied: betadine soaked 4x4, dry sterile dressing 2. Wound care instructions given: change dressing daily 3. PWB in post op shoe with DME assistance 4. Continue antibiotics 5. Discussed plan of care with Dr. Nicole, no surgical intervention planned at this time 6. Okay from Podiatry stand point to be discharged. Will need either [facility] for weekly debridement, dressing changes or refer to wound care clinic -Clean left foot with wound ship cleaner or saline daily -Apply Betadine or collagen to the left foot ulcer -Secure with 4 x 4's, Kerlix, tape 7. Follow up outpatient in 1-2 weeks
--- NOTE | 2018-12-25 21:59 | Discharge Summary ---
General - General Admission date:: 12/22/18 Discharge date: 12/26/18 HPI HPI: 38 yo F with protracted history of unclear pulmonary diagnosis (IPF vs COPD versus severe asthma). She presented to the hospital due to worsening shortness of breath with sats at home less than 90 on 2 L of oxygen. States that she has been wheezing severely and having a hard time breathing due to concern for fluid overload. On initial assessment she was found to have concern for pneumonia on x-ray with respiratory alkalosis due to tachypnea and shallow breathing. Admitted to medicine for further management and initiated on antibiotics. Of note she was also found to have an infection on her foot and ulcer concerning for pressure wound with possible underlying osteomyelitis. On further history this morning, patient notes that she has been off and on of steroids for the better part of the past year. This led to weight gain of approximately 100-120 pounds. During this time she has had no significant improvement in her lung function and is continued to require oxygen. She also has had a fall as of August leading to a lesion on her foot that has been slow to heal. Lesion on the foot has continued to have purulent drainage per her report and she is concerned there is worsening infection. She has had prolonged and worsening debility due to chronic steroids and worsening respiratory function. At this time she lives with family locally. Most of her care previously has been at [facility] in [facility]. Her speech is very pressured and it is difficult to obtain a clear history from her. We will work on obtaining records from [facility] to further understand her medical history. Of note she has an extensive psychiatric history evidenced by the medication she is on from her home med list. Denies chest pain, nausea vomiting, diarrhea, fevers. Hospital Course Hospital Course: Ms. Ro was admitted with acute respiratory failure and respiratory alkalosis. Initiated on antibiotics, oxygen, steroids. On further assessment found to have wound on left foot. Podiatry was consulted for debridement and further treatment. Patient gradually defervesced over course of hospitalization with significant improvement by day of discharge. No longer requiring supplemental oxygen. Tolerating good p.o. intake. Transition to oral antibiotics to complete course. Established on steroid taper to taper off chronic steroids over the next 6 weeks. Plan to have patient follow-up with pulmonology in the outpatient setting for further assessment and testing of pulmonary disease. We will follow-up weekly with podiatry. Plan to follow-up in 1 week with our office for further management and reassessment. Given sample of Symbicort to initiate inhaled corticosteroid/laba combo for presumed severe asthma/COPD. Medically stable for discharge home. Denies any fevers, nausea vomiting, rash, diarrhea, confusion, shortness of breath, or chest pain. Objective Vital signs: Temp Pulse Resp BP Pulse Ox 98.5 F 99 H 20 126/78 98 12/25/18 19:25 12/25/18 19:25 12/25/18 19:25 12/25/18 19:25 12/25/18 19:25 Narrative: Patient is alert, responsive to commands, pleasant and talkative, cushingoid faces, in bed in no acute distress on ambient air Morbid obesity limits accuracy of exam. Lungs with good air movement bilaterally, clear to auscultation, no wheeze or rhonchi. Abdomen is obese and soft. striae present, Heart rate regular, no murmurs Extremities show obesity related edema. IV in the right ankle. Bandage from debridement on the left ankle with betadine, picture from this morning's examination of foot visualized showing decreased erythema, clean base with granulation tissue, no bleeding or weeping. Results Labs on day of discharge: Labs from last 24 hours 12/25/18 12/25/18 06:03 06:03 WBC 12.8 H RBC 4.24 Hgb 12.5 Hct 39.7 MCV 93.7 MCH 29.5 MCHC 31.5 L RDW 16.2 Plt Count 218 MPV 8.1 Neut % (Auto) 69.9 Lymph % (Auto) 24.8 Caldwell % (Auto) 4.7 Eos % (Auto) 0.5 Baso % (Auto) 0.2 Neut # (Auto) 8.9 H Lymph # (Auto) 3.2 [place]dwell # (Auto) 0.6 Eos # (Auto) 0.1 Baso # (Auto) 0.0 Sodium 142 Potassium 3.3 L D Chloride 104 Carbon Dioxide 32 D Anion Gap 9.3 BUN 13 D Creatinine 0.76 D Estimated Creat Clear 76 Estimated GFR 86 Est GFR ( Amer) 104 D Glucose 111 H Calcium 8.1 L Preliminary micro results at discharge 12/22/18 18:43 Blood Culture - Preliminary Blood NO GROWTH AFTER 48 HOURS 12/22/18 18:43 Blood Culture - Preliminary Blood NO GROWTH AFTER 48 HOURS DS: Diagnosis - Discharge Diagnosis (1) Chronic steroid use Status: Chronic (2) Morbid obesity Status: Chronic (3) COPD (chronic obstructive pulmonary disease) Status: Chronic (4) Cellulitis of left foot Status: Acute (5) Foot ulcer Status: Chronic (6) Sepsis Status: Resolved (7) Ulcer of left foot due to type 2 diabetes mellitus Status: Chronic (8) Acute respiratory alkalosis Status: Resolved (9) Pneumonia Status: Acute Discharge Plan - Patient Discharge Instructions ACTIVITY: Ambulate as tolerated DIET: continue same diet Patient Instructions: Chronic Obstructive Pulmonary Disease, Heart Failure, DI for Heart Failure, DI for Chronic Obstructive Pulmonary Disease, DI for Sepsis -- Adult, Skin Wound - Follow up Plan Follow up with: Roosevelt Nicole MD [Staff Physician] - Roosevelt East MD [Consulting Physician] - 02/03/19 1:00 pm Soha Lund [Primary Care Provider] - 12/31/18 10:00 am Deisy Dolan DPM [Staff Physician] - 01/01/19 3:40 pm Disposition: Home, Self-Halfway Medications: Home Medications Medication Instructions Recorded Confirmed Type Albuterol Sulfate [Albuterol HFA 2 puff INHALATION Q4-6H PRN 02/25/18 12/22/18 History Inhaler] Baclofen 10 mg PO BID 02/25/18 12/23/18 History Montelukast Sodium [Montelukast 10 mg PO HS 02/25/18 12/22/18 History 10mg Tab] Pantoprazole Sodium [Protonix 40mg 80 mg PO DAILY 02/25/18 12/23/18 History tablet] Amitriptyline HCl [Elavil 50mg 25 mg PO DAILY 12/22/18 12/23/18 History tablet] Bumetanide [Bumex 1mg tablet] 1 mg PO BID 12/22/18 12/22/18 History Fluoxetine HCl [Prozac 20mg 20 mg PO DAILY 12/22/18 12/23/18 History Capsule] Ipratropium/Albuterol Sulfate 3 ml IH Q4RT 12/22/18 12/22/18 History [Duoneb 3mL neb] LORazepam [Ativan 1mg tablet] 1 mg PO 5XDAY PRN 12/22/18 12/22/18 History Pregabalin [Lyrica] 50 mg PO TID 12/22/18 12/22/18 History Spironolactone [Spironolactone 25 mg PO DAILY 12/22/18 12/22/18 History 25mg Tablet] Metformin HCl 500 mg PO DAILY 12/23/18 12/23/18 History Promethazine HCl 1 - 2 tab PO Q6HP PRN 12/23/18 12/23/18 History Budesonide/Formoterol Fumarate 10.2 gm IH BID 30 Days #1 12/26/18 Rx [Symbicort 160-4.5 Mcg Inhaler] hfa.aer.ad Cefdinir [Omnicef 300mg Capsule] 300 mg PO BID 5 Days #10 cap 12/26/18 Rx Fluconazole [Diflucan 150mg tab] 150 mg PO ONCE 1 Days #1 tab 12/26/18 Rx Oxycodone HCl/Acetaminophen 1 each PO QID 7 Days #28 tab 12/26/18 Rx [Percocet 7.5-325 mg Tablet] predniSONE [Prednisone 5mg 5 mg PO DAILY 35 Days #68 tab 12/26/18 Rx Tab] Prescriptions/Medication Reconciliation: New Fluconazole [Diflucan 150mg tab] 150 mg PO ONCE 1 Days #1 tab predniSONE [Prednisone 5mg Tab] 5 mg PO DAILY 35 Days #68 tab Budesonide/Formoterol Fumarate [Symbicort 160-4.5 Mcg Inhaler] 10.2 gm IH BID 30 Days #1 hfa.aer.ad Oxycodone HCl/Acetaminophen [Percocet 7.5-325 mg Tablet] 1 each PO QID 7 Days #28 tab Cefdinir [Omnicef 300mg Capsule] 300 mg PO BID 5 Days #10 cap Continued Pantoprazole Sodium [Protonix 40mg tablet] 80 mg PO DAILY Montelukast Sodium [Montelukast 10mg Tab] 10 mg PO HS Baclofen 10 mg PO BID Albuterol Sulfate [Albuterol HFA Inhaler] 2 puff INHALATION Q4-6H PRN PRN Reason: Dyspnea Pregabalin [Lyrica] 50 mg PO TID Bumetanide [Bumex 1mg tablet] 1 mg PO BID LORazepam [Ativan 1mg tablet] 1 mg PO 5XDAY PRN PRN Reason: Anxiety Spironolactone [Spironolactone 25mg Tablet] 25 mg PO DAILY Fluoxetine HCl [Prozac 20mg Capsule] 20 mg PO DAILY Amitriptyline HCl [Elavil 50mg tablet] 25 mg PO DAILY Metformin HCl 500 mg PO DAILY Ipratropium/Albuterol Sulfate [Duoneb 3mL neb] 3 ml IH Q4RT Promethazine HCl 1 - 2 tab PO Q6HP PRN PRN Reason: Nausea And Vomiting Discontinued Fluticasone Propion/Salmeterol [Wixela 500-50 Inhub] 1 puff IH BID predniSONE [Deltasone 10mg tablet] 10 mg PO DIRECTED Doxycycline Hyclate [Doxycycline 100mg Capsule] 100 mg PO BID Ondansetron [Zofran 4mg ODT] 4 mg PO Q6HP PRN PRN Reason: Nausea And Vomiting Oxycodone HCl/Acetaminophen [Percocet 5/325mg tablet] 1 tab PO Q6H PRN PRN Reason: PAIN - Problem Reconciliation Problems Reviewed?: Yes
[2018-12-26 05:33] LABS: Basophils % 0.2 % (0.1-2.0); Eosinophils # 0.1 K/mm3 (0.0-0.4); Eosinophils % 0.9 % (0.1-12.0); Hematocrit 40.3 % (37.0-47.0); Hemoglobin 12.3 g/dL (12.2-16.2); Lymphocytes # 3.7 K/mm3 (0.7-4.5); Lymphocytes % 24.4 % (10-50); Mean Corpuscular HGB Conc 30.5 g/dL (31.8-35.4); Mean Corpuscular Volume 94.6 fl (81-99); Mean Platelet Volume 8.2 fl (7.4-10.4); Monocytes # 0.6 K/mm3 (0.1-1.0); Monocytes % 4.1 % (1.7-9.3); Neutrophils # 10.8 K/mm3 (1.8-7.8); Neutrophils % 70.4 % (37.0-80.0); Platelet Count 238 K/mm3 (142-424); Red Blood Count 4.26 M/mm3 (4.20-5.40); Red Cell Distribution Width 16.3 % (11.5-17.5); White Blood Count 15.3 K/mm3 (4.8-10.8)
[2018-12-26 05:42] LABS: Anion Gap 4.7 mEq/L (5-15); Calcium 8.3 mg/dL (8.5-10.1)
--- NOTE | 2018-12-26 08:05 | Progress Note ---
Subjective Date: 12/26/18 Time: 07:45 Principal diagnosis: Left foot DM ulcer Interval history: Patient resting comfortably in bed eating breakfast. She reports pain is much better today. Still reports some tingling and burning to the foot. PN: Obj Ex Vital signs: Temp Pulse Resp BP Pulse Ox 98.3 F 90 23 141/86 H 96 12/26/18 04:00 12/26/18 06:14 12/26/18 04:00 12/26/18 04:00 12/26/18 06:14 - Constitutional no acute distress - Routine HEENT Exam Head: Present: normocephalic - Routine Neck Exam Present: supple - Routine Respiratory Exam Absent: respiratory distress - Routine Cardiovascular Exam Present: RRR - Routine Abdominal Exam Present: soft - Routine Extremities Exam Present: edema, pulses intact - Detailed Lower Extremity Exam Top foot image: 1 - Left foot ulcer: There is an area of edema and erythema to the dorsal left foot. The area measures approximately 3 x 3 cm. Within the red area there is an ulcer with mixed wound base. Wound base is 80% granular, 20% fibrotic tissue. The ulcer measures approximately 2.5 x 2.4 x 0.3 cm. There is no purulence, malodor and no sinus tracking. No drainage noted. POP. Comments: Skin temp wnl. CFT and palpable pedal pulses noted. No calf or thigh pain noted b/l. POP to left dorsal foot around ulcer. - Routine Skin Exam Present: erythema (improving), warm, wounds - Routine Neurological Exam Present: alert, moving all extremities - Routine Psychiatric Exam Present: normal affect Progress Note: A&P (1) Chronic steroid use Status: Acute Current Visit: Yes (2) Morbid obesity Status: Chronic Current Visit: Yes (3) COPD (chronic obstructive pulmonary disease) Status: Chronic Current Visit: Yes (4) Cellulitis of left foot Status: Acute Current Visit: Yes (5) Foot ulcer Status: Chronic Current Visit: Yes (6) Sepsis Status: Acute Current Visit: Yes (7) Ulcer of left foot due to type 2 diabetes mellitus Status: Chronic Current Visit: Yes (8) Acute respiratory alkalosis Status: Acute Current Visit: Yes (9) Pneumonia Status: Acute Current Visit: Yes Assessment and Plan for All Diagnoses:: Left foot DM ulcer: I discussed with the patient the importance of proper hygiene and maintaining a clean healthy wound bed to avoid the infection spreading. The wound was cleansed with saline. POP decreased. Post debridement the wound was 2.5 x 2.4 x 0.3 cm. The wound base was 80% granular and 20% fibrotic with no purulence or drainage noted. 1. Dressing applied: betadine soaked 4x4, dry sterile dressing 2. Wound care instructions given: change dressing daily 3. PWB in post op shoe with DME assistance 4. Continue antibiotics 5. Discussed plan of care with Dr. Nicole, no surgical intervention planned at this time 6. Okay from Podiatry stand point to be discharged. Will need either [facility] for weekly debridement, dressing changes or refer to wound care clinic -Clean left foot with wound card cleaner or saline daily -Apply Betadine or collagen to the left foot ulcer -Secure with 4 x 4's, Kerlix, tape 7. Follow up outpatient in 1 weeks
[2018-12-26 08:19] LABS: Lymphocytes % 19 % (10-50); Monocytes % 7 % (2-9); Neutrophils % 71 % (42-76); RBC Morphology Normal; Total Cells Counted 100
== END 2018-12-26 11:46 | disposition home or self-care (01) ==
LOC: 2ND 16:46 → ER 16:46 → OBSVTOIN 20:19 → INTOOBSV 20:19 → 2ND 20:20
PROVIDERS: ADMIT Internal Medicine Adolescent Medicine; ATTEND Internal Medicine Adolescent Medicine
CPT/HCPCS: 36415; 71010; 71045; 73630; 73720; 80048; 80053; 82803; 82962; 83036; 83605; 83880; 84484; 85007; 85025; 85651; 86140; 87040; 87275; 87276; 94640; 94760; 94761; 96367; 96374; 96375; 97162; 97166; 99284; A9576; G0378; J0456; J2405

== ENCOUNTER 2019-01-10 23:48 | Observation (INO) ==
[2019-01-11 00:44] LABS: Basophils # 0.1 K/mm3 (0-0.2); Basophils % 0.3 % (0.1-2.0); Eosinophils # 0.1 K/mm3 (0.0-0.4); Eosinophils % 0.5 % (0.1-12.0); Hematocrit 39.3 % (37.0-47.0); Hemoglobin 12.7 g/dL (12.2-16.2); Lymphocytes # 1.6 K/mm3 (0.7-4.5); Lymphocytes % 9.5 % (10-50); Mean Corpuscular HGB Conc 32.4 g/dL (31.8-35.4); Mean Corpuscular Volume 92.5 fl (81-99); Mean Platelet Volume 8.1 fl (7.4-10.4); Monocytes # 0.7 K/mm3 (0.1-1.0); Neutrophils # 14.9 K/mm3 (1.8-7.8); Neutrophils % 85.7 % (37.0-80.0); Platelet Count 328 K/mm3 (142-424); Red Blood Count 4.25 M/mm3 (4.20-5.40); Red Cell Distribution Width 16.8 % (11.5-17.5); White Blood Count 17.3 K/mm3 (4.8-10.8)
[2019-01-11 00:55] LABS: Microscopic, Urine URINE MICROSCOPIC (MICROSCOPIC)
[2019-01-11 00:56] LABS: Appearance,Urine CLEAR (Clear); Bilirubin,Urine Negative (Negative); Blood, Urine 3+ (Negative); Color,Urine YELLOW (Yellow); Glucose,Urine (UA) Negative (Negative); Ketones,Urine Negative (Negative); Leukocyte Esterase,Urine Negative (Negative); Protein,Urine Negative (Negative); Urobilinogen,Urine 0.2 EU/dl (0.2)
[2019-01-11 00:59] LABS: Lymphocytes % 7 % (10-50); Monocytes % 3 % (2-9); Neutrophils % 83 % (42-76); RBC Morphology Normal; Total Cells Counted 100
[2019-01-11 01:02] LABS: Alanine Aminotransferase 58 U/L (12-78); Albumin Level 3.2 gm/dL (3.4-5.0); Alkaline Phosphatase 106 U/L (46-116); Anion Gap 16.8 mEq/L (5-15); Aspartate Amino Transferase 24 U/L (15-37); Bilirubin,Total 0.3 mg/dL (0.2-1.0); Blood Urea Nitrogen 10 mg/dL (7-18); C-Reactive Protein 3.5 mg/dL (0.0-0.9); Calcium 9.5 mg/dL (8.5-10.1); Carbon Dioxide 26 mmol/L (21.0-32.0); Chloride 100 mmol/L (98-107); Globulin 3.3 gm/dl (1.3-3.2); Glucose 184 mg/dL (74-106); Sodium 139 mmol/L (136-145); Total Protein,Serum 6.5 gm/dL (6.4-8.2)
[2019-01-11 01:04] LABS: RBC,Urine 50-100 #/hpf (0-3)
[2019-01-11 01:26] LABS: Erythrocyte Sedimentation Rate 20 mm/hr (0-20)
[2019-01-11 02:30] LABS: Amphetamine/Metha Screen,Urine Negative ng/mL (<1000); Barbiturates Screen,Urine Negative ng/mL (<200); Benzodiazepines Screen,Urine Negative ng/mL (<200); Cannabinoid Screen,Urine Negative ng/mL (<50); Cocaine Screen,Urine Negative ng/mL (<300); Methadone Screen,Urine Negative ng/mL (<300); Opiate Screen,Urine Negative ng/mL (<300); Phencyclidine Screen,Urine Negative ng/mL (<25)
[2019-01-11 02:31] LABS: ABG Base Excess 1.9 mmol/L (-2.4-2.3); ABG HCO3 26.3 mmhg (22.0-26.0); ABG Oxygen Saturation 93 % (90-100); ABG PCO2 41.2 mmhg (35.0-45.0); ABG PH 7.42 mmol/L (7.35-7.45); ABG PO2 69.3 mmhg (80-100); ABG TCO2 27.6 mmhg (23-27)
[2019-01-11 02:52] LABS: Allen's Test Y; Oxygen 2 %
--- NOTE | 2019-01-11 04:09 | Emergency Department Note ---
ED Disposition Clinical Impression: COPD exacerbation, Sepsis Disposition: Admitted as Observation Condition on Discharge: Fair Referrals: Provider,Referral, [Primary Care Provider] - Time of Disposition: 04:33 - Critical Care Critical Care Time: No Attestation: On 01/10/19, the high probability of a clinically significant, sudden or life threatening deterioration of the following system(s) required my full and direct attention, intervention and personal management. The time I documented below is in addition to time spent performing reported procedures but includes the following listed in this critical care notation. Medical Decision Making - Medical Records Medical records reviewed: Yes: I reviewed the patient's medical records. - Cesar Inquiry Pt receiving controlled substance: No Cesar was queried for this patient: No Vital Signs: 01/10/19 23:49 01/11/19 00:02 01/11/19 01:30 Temperature 98.5 F 98.5 F Temperature Source Oral Oral Pulse Rate [Left Radial] 123 H 123 H 112 H Respiratory Rate 21 21 18 Blood Pressure [Right Arm] 132/55 L 132/55 L 130/59 L Blood Pressure Mean [Right Arm] 80 80 82 Blood Pressure Source [Right Arm] Automatic Cuff Automatic Cuff Automatic Cuff Blood Pressure Position [Right Arm] Sitting Sitting Sitting 02 Sat by Pulse Oximetry 96 96 96 Oxygen Delivery Method Nasal Cannula Nasal Cannula Nasal Cannula Oxygen Flow Rate (LPM) 2 2 2 01/11/19 02:29 01/11/19 03:14 Temperature Temperature Source Pulse Rate [Left Radial] 100 H 97 H Respiratory Rate 32 H 18 Blood Pressure [Right Arm] 139/74 103/67 L Blood Pressure Mean [Right Arm] 95 79 Blood Pressure Source [Right Arm] Automatic Cuff Blood Pressure Position [Right Arm] Sitting 02 Sat by Pulse Oximetry 96 100 Oxygen Delivery Method Nasal Cannula Nasal Cannula Oxygen Flow Rate (LPM) 2 2 - Lab Data Lab results reviewed: Yes: I reviewed the patient's lab results. Lab Results 01/11/19 00:30: WBC 17.3 H, RBC 4.25, Hgb 12.7, Hct 39.3, MCV 92.5, MCH 29.9, MCHC 32.4, RDW 16.8, Plt Count 328, MPV 8.1, Neut % (Auto) 85.7 H, Lymph % (Auto) 9.5 L, Day % (Auto) 4.0, Eos % (Auto) 0.5, Baso % (Auto) 0.3, Neut # (Auto) 14.9 H, Lymph # (Auto) 1.6, Day # (Auto) 0.7, Eos # (Auto) 0.1, Baso # (Auto) 0.1, Total Counted 100, Neutrophils % (Manual) 83 H, Band Neutrophils % 7.0, Lymphocytes % (Manual) 7 L, Monocytes % (Manual) 3, Platelet Estimate Normal, RBC Morphology Normal, ESR 20 01/11/19 00:30: Sodium 139, Potassium 3.8, Chloride 100, Carbon Dioxide 26, Anion Gap 16.8 H, BUN 10, Creatinine 1.11 H, Estimated Creat Clear 52, Estimated GFR 55 L, Est GFR ( Amer) 67, Glucose 184 H, Calcium 9.5, Total Bilirubin 0.3, AST 24, ALT 58, Alkaline Phosphatase 106, Troponin I < 0.02, C-Reactive Protein 3.5 H, Total Protein 6.5, Albumin 3.2 L, Globulin 3.3 H, Albumin/Globulin Ratio 1.0 L 01/11/19 00:30: Lactate 3.9 H 01/11/19 00:30: Plasma/Serum Alcohol 0 01/11/19 00:50: Urine Color Yellow, Urine Appearance Clear, Urine pH 6.0, Ur Specific Raven 1.010, Urine Protein Negative, Urine Glucose (UA) Negative, Ur ine Ketones Negative, Urine Blood 3+, Urine Nitrate Negative, Urine Bilirubin Negative, Urine Urobilinogen 0.2, Ur Leukocyte Esterase Negative, Urine RBC 50- 100, Ur Squamous Epith Cells 3-5 01/11/19 00:50: Urine HCG, Qual Negative 01/11/19 00:50: Urine Opiates Screen Negative, Urine Methadone Screen Negative, Ur Barbituates Screen Negative, Ur Phencyclidine Scrn Negative, Ur Amphetamines Screen Negative, U Benzodiazepines Scrn Negative, Urine Cocaine Screen Negative, U Marijuana (THC) Screen Negative 01/11/19 02:30: Specimen Source R/r, O2 % 2, ABG pH 7.42, ABG pCO2 41.2, ABG pO2 69.3 L, ABG HCO3 26.3 H, ABG Total CO2 27.6 H, ABG O2 Saturation 93, ABG Base Excess 1.9, Allan Test Y Result diagrams: 01/11/19 00:30 01/11/19 00:30 Orders (Tests/Meds): ED MEDICATIONS Generic Name Dose Route Start Last Admin Trade Name Freq PRN Reason Stop Dose Admin Levofloxacin/Dextrose 750 mg in 150 mls @ 100 mls/hr 01/11/19 04:15 Levofloxacin 750mg/150ml Premix IV 01/25/19 04:14 Q24H AZIZA Protocol Piperacillin Sod/Tazobactam 100 mls @ 200 mls/hr 01/11/19 04:15 Sod 4.5 gm/ Sodium Chloride IV 01/25/19 04:14 Q6H AZIZA Protocol Discontinued Medications Generic Name Dose Route Start Last Admin Trade Name Freq PRN Reason Stop Dose Admin Albuterol/Ipratropium 3 ml 01/11/19 03:41 Duoneb 3ml Neb IH 01/11/19 03:42 ONCE ONE Methylprednisolone Sodium Succinate 125 mg 01/11/19 00:35 01/11/19 00:53 Solu-Medrol 125mg/2ml Vial IV 01/11/19 00:36 125 mg ONCE ONE Administration ORDERS Category Date Time Status CT abdomen pelvis wo con Stat Cat Scan 01/11/19 02:[address] head/brain wo con Stat Cat Scan 01/11/19 03:10 Taken XR chest 2V Stat Exams 01/11/19 00:15 Taken Blood Culture Stat Micro 01/11/19 00:30 Received Arterial Blood Gas Stat RT 01/11/19 02:13 Ordered - Physician Consults Physician Consulted: sydney Time: 04:50 Reason -: Admission General Adult HPI - General Chief complaint: Shortness of Breath/Dyspnea Stated complaint: COPD;Short of Air;Severe Asthma Time Seen by Provider: 01/11/19 04:09 Mode of Arrival: Ambulatory Source of Information: Patient Limitations: No Limitations Description of Symptoms (Recalled from ER Triage Doc. by RN): pt stated shes been extremely short of breath since yesterday and it has only gotten worse tod ay. pt stated she feels like she is drowning and is making her anxious. pt stated she feels pain from her chest bone radiating to her middle back. - Related Data Home Medications Medication Instructions Recorded Confirmed Albuterol Sulfate [Albuterol HFA 2 puff INHALATION Q4-6H PRN 02/25/18 01/08/19 Inhaler] Baclofen 10 mg PO BID 02/25/18 01/08/19 Montelukast Sodium [Montelukast 10 mg PO HS 02/25/18 01/08/19 10mg Tab] Pantoprazole Sodium [Protonix 40mg 80 mg PO DAILY 02/25/18 01/08/19 tablet] Amitriptyline HCl [Elavil 50mg 25 mg PO DAILY 12/22/18 01/08/19 tablet] Bumetanide [Bumex 1mg tablet] 1 mg PO BID 12/22/18 01/08/19 Fluoxetine HCl [Prozac 20mg 20 mg PO DAILY 12/22/18 01/08/19 Capsule] Ipratropium/Albuterol Sulfate 3 ml IH Q4RT 12/22/18 01/08/19 [Duoneb 3mL neb] LORazepam [Ativan 1mg tablet] 1 mg PO 5XDAY PRN 12/22/18 01/08/19 Pregabalin [Lyrica] 50 mg PO TID 12/22/18 01/08/19 Spironolactone [Spironolactone 25 mg PO DAILY 12/22/18 01/08/19 25mg Tablet] Metformin HCl 500 mg PO DAILY 12/23/18 01/08/19 Promethazine HCl 1 - 2 tab PO Q6HP PRN 12/23/18 01/08/19 Oxycodone HCl/Acetaminophen 1 tab PO BID PRN 01/04/19 01/08/19 [Percocet 5/325mg tablet] Previous Rx's Medication Instructions Recorded Budesonide/Formoterol Fumarate 10.2 gm IH BID 30 Days #1 12/26/18 [Symbicort 160-4.5 Mcg Inhaler] hfa.aer.ad Cefdinir [Omnicef 300mg Capsule] 300 mg PO BID 5 Days #10 cap 12/26/18 Fluconazole [Diflucan 150mg tab] 150 mg PO ONCE 1 Days #1 tab 12/26/18 predniSONE [Prednisone 5mg 5 mg PO DAILY 35 Days #68 tab 12/26/18 Tab] lidocaine 5 % topical patch 1 patch TOPICAL DAILY #30 each 01/01/19 Allergies Allergy/AdvReac Type Severity Reaction Status Date / Time haloperidol [From Haldol] Allergy Severe extrapyrimidal Verified 01/11/19 00:10 effects cyclobenzaprine Allergy Intermediate Hives Verified 01/11/19 00:10 [From FLEXERIL] ketorolac [From TORADOL] Allergy Intermediate Hives Verified 01/11/19 00:10 CONTRAST DYE Allergy Severe ANAPHYLAXIS Uncoded 01/01/19 15:56 SHELLFISH (FOOD) Allergy Intermediate ANAPHYLAXIS Uncoded 01/01/19 15:56 [facility] History - Hepatitis A Screen Drug use history?: No High risk sexual behaviors?: No History of sexually transmitted infection?: No Currently employed?: No Childcare worker?: No Do you have indoor plumbing?: Yes Do you have electricity?: Yes Attestation statement:: This patient has been screened for Hepatitis A risk factors. Medical History: Reports:: Arrhythmia, Cardiomyopathy, Congestive Heart Failure, Diabetes Mellitus Type 2, Hypertension, Palpitations Denies:: Cancer, Diabetes Mellitus Type 1, MRSA Other Surgeries: Yes: Cholecystectomy, Amputation: No Fractures: Yes (RIBS) - Social History Educational Level: Completed High School Smoking Status: Current every day smoker Tobacco Type: cigarettes # Packs/Day (cigarettes): 2 Alcohol Intake: never Alcohol Intake Frequency:: 3 or more drinks per day Occupational Status: disabled Housing: house Household Members: none Family Hx:: Coronary Artery Disease, Diabetes, Hypertension ROS Obtained: Yes All systems reviewed & no additional complaints - Constitutional Constitutional: Reports chills, Reports fever(s) - ENT Ears, Nose, Mouth, and Throat: Denies sinus pain, Denies sinus pressure - Cardiovascular Cardiovascular: Denies chest pain, Denies chest pain at rest, Reports dyspnea, Reports dyspnea on exertion - Respiratory Respiratory: Yes non-productive cough, Yes dyspnea, Yes dyspnea on exertion - Gastrointestinal Gastrointestingal: Reports: abdominal pain, diarrhea - Genitourinary Female Genitourinary: Reports flank pain - Integumentary/Breasts Skin/Breast: Denies rash, Denies skin pain - Neurologic Neurologic: Denies headache(s), Denies numbness, Denies tingling /numbness/burning sensations - Hematologic/Lymphatic Henatologic/Lymphatic: Denies easy bleeding, Denies easy bruising Physical Exam - General General appearance: lethargic, in distress, obese - Eye Eye exam: Present: normal appearance - ENT ENT exam: Present: normal exam, normal oropharynx, mucous membranes moist, TM's normal bilaterally, normal external ear exam - Neck Neck exam: Present: normal inspection, full ROM, trachea midline. Absent: meningismus, lymphadenopathy - Chest Chest inspection: Present: normal inspection, symmetric chest wall rise. Absent: tenderness - Respiratory Respiratory exam: Present: respiratory distress, wheezes, other (paradoxical breathing) - Cardiovascular Cardiovascular exam: Present: regular rate, normal rhythm. Absent: JVD - Abdominal Exam Abdominal exam: Present: soft. Absent: distention, tenderness, guarding, rebound - Extremities Exam Extremities exam: Present: normal inspection, full ROM, normal capillary refill. Absent: calf tenderness - Back Exam Back exam: Present: normal inspection. Absent: tenderness - Neurological Exam Neurological exam: Present: alert, oriented X3 - Expanded Neurological Exam Patient oriented to: Present: person, place. Absent: time Speech: Present: fluid speech Cranial nerves: Normal: EOM function (II, III, IV, ), facial sensation (V), facial palsy (VII), gag reflex (IX), spinal accessory function (XI), tongue deviation (XII) Cerebellar function: Normal: finger to nose Motor strength - LUE: 5/5 Motor strength - RUE: 5/5 Motor strength - LLE: 5/5 Motor strength - RLE: 5/5 Upper motor neuron exam: Absent bilaterally: sensory extinction - Psychiatric Psychiatric exam: Present: normal affect, normal mood - Skin Skin exam: Present: warm, dry, intact, normal color - Lymphatic Lymphatic Findings: no adenopathy
--- NOTE | 2019-01-11 08:43 | History & Physical Report ---
*Admission Date: 01/10/19 *Chief complaint: SOA, confusion *History of present illness: Ms. Esparza is a 38 yo F with protracted history of unclear pulmonary diagnosis (IPF vs COPD versus severe asthma). She presented to the hospital due to worsening shortness of breath with sats at home less than 90 on 2 L of oxygen and significant confusion. States that she has had worsening shortness of breath and wheezing with a difficult time breathing for several weeks now. Of note was admitted to our service the middle of last month and re-presented to the ER on the first of this month at which time she was sent to for a pulmonology consult but never occurred. Symptoms today are similar to previous presentations. On initial assessment in the ER she was found to have extreme shortness of breath, drowsiness, worsening anxiety with sensation of "drowning" per patient's report. She also is complaining of pain radiating to her back from the middle of her chest. Initial assessment with labs showed leukocytosis, tachycardia, tachypnea. X-ray with no consolidation or airspace disease. Abdominal CT with possible umbilical hernia. EKG normal with negative troponins. Admitted to medicine for further management and initiated on antibiotics. Of note she was also found to have an infection on her foot and ulcer concerning for pressure wound at last visit. Wound appears better but is still causing her pain per her report. Has been following with Dr. Dolan in the outpatient setting. Please see H&P from last visit 12/23/2018 for complete history. Of note, she has had prolonged and worsening debility due to chronic steroids and worsening respiratory function. At this time she lives with family locally. Most of her care previously has been at [place] in [facility]. Her speech is very pressured and it is difficult to obtain a clear history from her. We will work on obtaining records from [place] to further understand her medical history. Of note she has an extensive psychiatric history evidenced by the medication she is on from her home med list. She saw her primary care at [place] after last visit at the end of December. Denies nausea vomiting, diarrhea, fevers. Complains of chest pain, shortness of breath, anxiousness, pain in her foot. [facility] History I have reviewed the patient's past medical history: Yes Medical History: Reports:: Arrhythmia, Cardiomyopathy, Congestive Heart Failure, Diabetes Mellitus Type 2, Hypertension, Palpitations Denies:: Cancer, Diabetes Mellitus Type 1, MRSA *Have you ever received a pneumonia vaccine?: Yes *Have you received a flu vaccine this season?: No Other Surgeries: Yes: Cholecystectomy, Amputation: No Fractures: Yes (RIBS) - *Social History Educational Level: Completed GED/General Educational Development Smoking Status: Current every day smoker Tobacco Type: cigarettes # Packs/Day (cigarettes): 1 Alcohol Intake: never Alcohol Intake Frequency:: 3 or more drinks per day *Occupational Status:: disabled Housing: house Household Members: none *Travel in the last 8 weeks: None Family Hx:: Asthma, Cancer, Diabetes, Heart Attack, Hypertension, Stroke Review of Systems - Review of Systems Review of systems:: pertinent systems reviewed and negative unless documented below - *Neurologic Denies headache(s), Denies numbness, Denies tingling/numbness/burning sensations Meds Home Medications Medication Instructions Recorded Confirmed Type Albuterol Sulfate [Albuterol HFA 2 puff INHALATION Q4-6H PRN 02/25/18 01/11/19 History Inhaler] Baclofen 10 mg PO BID 02/25/18 01/11/19 History Montelukast Sodium [Montelukast 10 mg PO HS 02/25/18 01/11/19 History 10mg Tab] Pantoprazole Sodium [Protonix 40mg 80 mg PO DAILY 02/25/18 01/11/19 History tablet] Amitriptyline HCl [Elavil 50mg 25 mg PO BID 12/22/18 01/11/19 History tablet] Bumetanide [Bumex 1mg tablet] 1 mg PO TID 12/22/18 01/11/19 History Fluoxetine HCl [Prozac 20mg 20 mg PO DAILY 12/22/18 01/11/19 History Capsule] Ipratropium/Albuterol Sulfate 3 ml IH Q4RT 12/22/18 01/11/19 History [Duoneb 3mL neb] LORazepam [Ativan 1mg tablet] 1 mg PO 5XDAY PRN 12/22/18 01/11/19 History Pregabalin [Lyrica] 50 mg PO DAILY 12/22/18 01/11/19 History Spironolactone [Spironolactone 25 mg PO BID 12/22/18 01/11/19 History 25mg Tablet] Metformin HCl 500 mg PO DAILY 12/23/18 01/11/19 History Promethazine HCl 1 - 2 tab PO Q6HP PRN 12/23/18 01/11/19 History Oxycodone HCl/Acetaminophen 1 tab PO BID PRN 01/04/19 01/11/19 History [Percocet 5/325mg tablet] Budesonide/Formoterol Fumarate 10.2 gm IH BID 01/11/19 01/11/19 History [Symbicort 160-4.5 Mcg Inhaler] predniSONE [Prednisone 5mg 5 mg PO DAILY 01/11/19 01/11/19 History Tab] Allergies Allergy/AdvReac Type Severity Reaction Status Date / Time haloperidol [From Haldol] Allergy Severe extrapyrimidal Verified 01/11/19 00:10 effects Iodinated Contrast Media - Allergy Severe Anaphylaxis Verified 01/11/19 08:21 Oral and shellfish derived Allergy Severe Anaphylaxis Verified 01/11/19 08:21 cyclobenzaprine Allergy Intermediate Hives Verified 01/11/19 00:10 [From FLEXERIL] ketorolac [From TORADOL] Allergy Intermediate Hives Verified 01/11/19 00:10 Exam Vital signs and Labs for Last 24 Hours: Temp Pulse Resp BP Pulse Ox 98.3 F 111 H 18 122/72 94 L 01/11/19 08:00 01/11/19 08:00 01/11/19 08:00 01/11/19 08:00 01/11/19 08:00 Laboratory Results - last 24 hr 01/11/19 00:30: WBC 17.3 H, RBC 4.25, Hgb 12.7, Hct 39.3, MCV 92.5, MCH 29.9, MCHC 32.4, RDW 16.8, Plt Count 328, MPV 8.1, Neut % (Auto) 85.7 H, Lymph % (Auto) 9.5 L, Kinney % (Auto) 4.0, Eos % (Auto) 0.5, Baso % (Auto) 0.3, Neut # (Auto) 14.9 H, Lymph # (Auto) 1.6, Kinney # (Auto) 0.7, Eos # (Auto) 0.1, Baso # (Auto) 0.1, Total Counted 100, Neutrophils % (Manual) 83 H, Band Neutrophils % 7.0, Lymphocytes % (Manual) 7 L, Monocytes % (Manual) 3, Platelet Estimate Normal, RBC Morphology Normal, ESR 20 01/11/19 00:30: Sodium 139, Potassium 3.8, Chloride 100, Carbon Dioxide 26, Anion Gap 16.8 H, BUN 10, Creatinine 1.11 H, Estimated Creat Clear 52, Estimated GFR 55 L, Est GFR ( Amer) 67, Glucose 184 H, Calcium 9.5, Total Bilirubin 0.3, AST 24, ALT 58, Alkaline Phosphatase 106, Troponin I < 0.02, C-Reactive Protein 3.5 H, Total Protein 6.5, Albumin 3.2 L, Globulin 3.3 H, Albumin/Globulin Ratio 1.0 L 01/11/19 00:30: Lactate 3.9 H 01/11/19 00:30: Plasma/Serum Alcohol 0 01/11/19 00:50: Urine Color Yellow, Urine Appearance Clear, Urine pH 6.0, Ur Specific [place] 1.010, Urine Protein Negative, Urine Glucose (UA) Negative, Urine Ketones Negative, Urine Blood 3+, Urine Nitrate Negative, Urine Bilirubin Negative, Urine Urobilinogen 0.2, Ur Leukocyte Esterase Negative, Urine RBC 50- 100, Ur Squamous Epith Cells 3-5 01/11/19 00:50: Urine HCG, Qual Negative 01/11/19 00:50: Urine Opiates Screen Negative, Urine Methadone Screen Negative, Ur Barbituates Screen Negative, Ur Phencyclidine Scrn Negative, Ur Amphetamines Screen Negative, U Benzodiazepines Scrn Negative, Urine Cocaine Screen Negative, U Marijuana (THC) Screen Negative 01/11/19 02:30: Specimen Source R/r, O2 % 2, ABG pH 7.42, ABG pCO2 41.2, ABG pO2 69.3 L, ABG HCO3 26.3 H, ABG Total CO2 27.6 H, ABG O2 Saturation 93, ABG Base Excess 1.9, Allan Test Y 01/11/19 04:25: Lactate 3.9 H 01/11/19 06:19: POC Glucose 230 H 01/11/19 06:25: Lactate 4.4 H I & O for Last 24 hours: Intake & Output 01/08/19 01/09/19 01/10/19 01/11/19 23:59 23:59 23:59 23:59 Weight 119.408 kg - Constitutional morbidly obese Comments: Cushingoid appearance, mild distress on 2 L nasal cannula - *Routine HEENT Exam Head: Present: atraumatic, cushingoid faces Eye: Present: EOMI, PERRL ENT: Present: mucous membranes moist - *Routine Neck Exam Present: supple. Absent: lymphadenopathy - *Routine Respiratory Exam Present: wheezes, diminished air movement. Absent: crackles - *Routine Cardiovascular Exam Present: RRR, Normal S1, Normal S2. Absent: murmur - *Routine Abdominal Exam Present: soft, normoactive bowel sounds Comments: Protuberant with multiple striae - *Routine Rectal Exam Patient deferred: visual exam - *Routine Exam Patient deferred: external exam - *Routine Extremities Exam Present: edema. Absent: cyanosis, clubbing Comments: Healing ulcer on dorsum of left foot with significant improvement from last admission. Clean bandage with good granulation of wound - *Routine Skin Exam Present: intact. Absent: cyanosis, erythema - *Routine Neurological Exam Present: alert, oriented X3. Absent: altered mental status Assessment and Plan (1) Acute on chronic respiratory failure with hypoxemia Current visit: Yes Status: Acute Category: Medical Code(s): J96.21 - Acute and chronic respiratory failure with hypoxia Resolved this morning. Continue oxygen as needed for goal greater than 92 while awake, greater than 88 while asleep (2) COPD exacerbation Current visit: Yes Status: Acute Category: Medical Code(s): J44.1 - Chronic obstructive pulmonary disease with (acute) exacerbation Continue inhalers and steroids. Monitor for improvement (3) Foot ulcer, left Current visit: No Status: Chronic Qualifiers: Non-pressure ulcer stage: limited to breakdown of skin Qualified Code(s): L97.521 - Non-pressure chronic ulcer of other part of left foot limited to katja akdown of skin Category: Medical Code(s): L97.529 - Non-pressure chronic ulcer of other part of left foot with unspecified severity Improving. Continue wound dressing changes. No antibiotic's at this time (4) Pain Current visit: No Status: Acute Category: Medical Code(s): R52 - Pain, unspecified Related to foot and chest. Negative troponins. Resume home pain regimen. Repeat UDS 6 hours after meds given patient had no findings of controlled substances in her urine. This may be an anomaly given diuretics however some suspicion for noncompliance, though patient adamantly denies this. (5) Chronic steroid use Current visit: No Status: Chronic Category: Medical Was set up with taper at last admission. Currently on 10 mg daily dose per her report. We will continue IV steroids given thing and respiratory symptoms. Plan to resume taper at time of discharge (6) Morbid obesity Current visit: No Status: Chronic Category: Medical Code(s): E66.01 - Morbid (severe) obesity due to excess calories Complicates all aspects of her care (7) Umbilical hernia Current visit: Yes Status: Chronic Qualifiers: Obstruction and gangrene presence: without obstruction or gangrene Qualified Code(s): K42.9 - Umbilical hernia without obstruction or gangrene Category: Medical Code(s): K42.9 - Umbilical hernia without obstruction or gangrene Seen on CT at admission. Contains omentum. Mildly tender on clinical exam. We will continue to monitor abdomen. Will slowly feed. If clinically worsens or show sign of obstruction, will pursue CAT scan with oral contrast to assess for obstruction. (8) SIRS (systemic inflammatory response syndrome) Current visit: Yes Status: Acute Category: Medical Code(s): R65.10 - Systemic inflammatory response syndrome (SIRS) of non-infectious origin without acute organ dysfunction Tachycardic, tachypnea, leukocytosis. Unclear infection at this time. In the setting of pain, shortness of breath, chronic steroid use, suspect these are the culprit for the abnormalities. Will monitor with treatment of her pain and anxiety. Antibiotics were started empirically. We will continue for now pending culture results. If no identified source in 48 hours, will de-escalate antibiotics
[2019-01-11 09:57] LABS: Basophils % 0.2 % (0.1-2.0); Eosinophils # 0.1 K/mm3 (0.0-0.4); Eosinophils % 0.7 % (0.1-12.0); Hemoglobin 12.6 g/dL (12.2-16.2); Lymphocytes # 0.9 K/mm3 (0.7-4.5); Lymphocytes % 5.9 % (10-50); Mean Corpuscular HGB Conc 32.4 g/dL (31.8-35.4); Mean Corpuscular Volume 91.8 fl (81-99); Mean Platelet Volume 9.1 fl (7.4-10.4); Monocytes # 0.4 K/mm3 (0.1-1.0); Neutrophils # 13.1 K/mm3 (1.8-7.8); Neutrophils % 90.3 % (37.0-80.0); Platelet Count 347 K/mm3 (142-424); Red Blood Count 4.25 M/mm3 (4.20-5.40); Red Cell Distribution Width 16.8 % (11.5-17.5); White Blood Count 14.5 K/mm3 (4.8-10.8)
--- NOTE | 2019-01-11 11:18 | Pharmacy Consult Notes ---
[facility] Pharmacy VTE Monitoring - Patient Demographics Admission date: 01/11/19 (T) Report Date: 01/11/19 Time: 11:18 Allergies/Adverse Reactions: Patient Allergies haloperidol [From Haldol] Allergy (Severe, Verified 01/11/19 00:10) extrapyrimidal effects Iodinated Contrast Media - Oral and Allergy (Severe, Verified 01/11/19 08:21) Anaphylaxis shellfish derived Allergy (Severe, Verified 01/11/19 08:21) Anaphylaxis cyclobenzaprine [From FLEXERIL] Allergy (Intermediate, Verified 01/11/19 00:10) Hives ketorolac [From TORADOL] Allergy (Intermediate, Verified 01/11/19 00:10) Hives Height: 1.55 m Weight: 119.408 kg Patient Problems: Current Active Problems COPD exacerbation (Acute) Sepsis (Acute) Acute on chronic respiratory failure with hypoxemia (Acute) Umbilical hernia (Chronic) SIRS (systemic inflammatory response syndrome) (Acute) - VTE Risk Labs: VTE Related Lab Results Hgb 12.6 g/dL (12.2-16.2) 01/11/19 09:01 Hct 39.0 % (37.0-47.0) 01/11/19 09:01 Plt Count 347 K/mm3 (142-424) 01/11/19 09:01 BUN 10 mg/dL (7-18) 01/11/19 00:30 Creatinine 1.11 mg/dL (0.55-1.02) H 01/11/19 00:30 Estimated Creat Clear 52 mL/min (50-200) 01/11/19 00:30 VTE Score: 9 VTE Risk Level: Moderate Risk - Prophylaxis Types of VTE Prophylaxis: TEDS Knee High (RAVI HOSE ORDER PLACED)
[2019-01-11 11:46] LABS: Anion Gap 18.4 mEq/L (5-15); Blood Urea Nitrogen 13 mg/dL (7-18); Calcium 9.9 mg/dL (8.5-10.1); Carbon Dioxide 24 mmol/L (21.0-32.0); Chloride 103 mmol/L (98-107); Glucose 186 mg/dL (74-106); Sodium 140 mmol/L (136-145)
[2019-01-11 12:58] LABS: Lymphocytes % 7 % (10-50); Monocytes % 2 % (2-9); Neutrophils % 91 % (42-76); RBC Morphology Normal; Total Cells Counted 100
--- NOTE | 2019-01-11 15:27 | Discharge Summary ---
General - General Admission date:: 01/11/19 Discharge date: 01/11/19 HPI HPI: Ms. Esparza is a 38 yo F with protracted history of unclear pulmonary diagnosis (IPF vs COPD versus severe asthma). She presented to the hospital due to worsening shortness of breath with sats at home less than 90 on 2 L of oxygen and significant confusion. States that she has had worsening shortness of breath and wheezing with a difficult time breathing for several weeks now. Of note was admitted to our service the middle of last month and re-presented to the ER on the first of this month at which time she was sent to for a pulmonology consult but never occurred. Symptoms today are similar to previous presentations. On initial assessment in the ER she was found to have extreme shortness of breath, drowsiness, worsening anxiety with sensation of "drowning" per patient's report. She also is complaining of pain radiating to her back from the middle of her chest. Initial assessment with labs showed leukocytosis, tachycardia, tachypnea. X-ray with no consolidation or airspace disease. Abdominal CT with possible umbilical hernia. EKG normal with negative troponins. Admitted to medicine for further management and initiated on antibiotics. Of note she was also found to have an infection on her foot and ulcer concerning for pressure wound at last visit. Wound appears better but is still causing her pain per her report. Has been following with Dr. Dolan in the outpatient setting. Please see H&P from last visit 12/23/2018 for complete history. Of note, she has had prolonged and worsening debility due to chronic steroids and worsening respi ratory function. At this time she lives with family locally. Most of her care previously has been at [facility] in [facility]. Her speech is very pressured and it is difficult to obtain a clear history from her. We will work on obtaining records from [facility] to further understand her medical history. Of note she has an extensive psychiatric history evidenced by the medication she is on from her home med list. She saw her primary care at [place] after last visit at the end of December. Denies nausea vomiting, diarrhea, fevers. Complains of chest pain, shortness of breath, anxiousness, pain in her foot. Hospital Course Hospital Course: Ms. Esparza was admitted due to Sirs and respiratory failure. Did well overnight with steroids, breathing treatments, IV fluids. Unfortunately through the course of the day on Saturday, the patient felt that she had significant social stress at home and outside of the hospital needing her attention and warranting her to not continue admission for her acute illness. Discussion was had at bedside explaining our medical recommendation to stay for continued care given the finding of mesenteric umbilical hernia and her respiratory failure. She felt that her own health was seconds to the social stress she had and chose not to stay even though this was against our medical advice. She was instructed to resume her home regimen of inhalers and the steroid taper established when she was at her hospital 3 weeks ago. No antibiotics were prescribed as no source of infection was identified. Stressed my concern that she may have recurrent respiratory failure if she leaves prematurely, she stated understanding and left anyway in the care of her father. Objective Vital signs: Temp Pulse Resp BP Pulse Ox 98.5 F 119 H 18 107/68 L 93 L 01/11/19 12:00 01/11/19 14:18 01/11/19 12:00 01/11/19 12:00 01/11/19 12:00 Narrative: See HPI from earlier today for physical exam Results Labs on day of discharge: Labs from last 24 hours 01/11/19 01/11/19 01/11/19 12:06 09:01 09:01 WBC 14.5 H RBC 4.25 Hgb 12.6 Hct 39.0 MCV 91.8 MCH 29.8 MCHC 32.4 RDW 16.8 Plt Count 347 MPV 9.1 Neut % (Auto) 90.3 H Lymph % (Auto) 5.9 L [place] % (Auto) 3.0 Eos % (Auto) 0.7 Baso % (Auto) 0.2 Neut # (Auto) 13.1 H Lymph # (Auto) 0.9 [place] # (Auto) 0.4 Eos # (Auto) 0.1 Baso # (Auto) 0.0 Total Counted 100 Neutrophils % (Manual) 91 H Band Neutrophils % Lymphocytes % (Manual) 7 L Monocytes % (Manual) 2 Platelet Estimate Normal RBC Morphology Normal ESR Specimen Source O2 % ABG pH ABG pCO2 ABG pO2 ABG HCO3 ABG Total CO2 ABG O2 Saturation ABG Base Excess Allan Test Sodium 140 Potassium 5.4 H D Chloride 103 Carbon Dioxide 24 Anion Gap 18.4 H BUN 13 D Creatinine 1.04 H Estimated Creat Clear 56 Estimated GFR 60 Est GFR ( Amer) 72 Glucose 186 H POC Glucose 155 H Lactate Calcium 9.9 Total Bilirubin AST ALT Alkaline Phosphatase Troponin I < 0.02 C-Reactive Protein Total Protein Albumin Globulin Albumin/Globulin Ratio Urine Color Urine Appearance Urine pH Ur Specific [place] Urine Protein Urine Glucose (UA) Urine Ketones Urine Blood Urine Nitrate Urine Bilirubin Urine Urobilinogen Ur Leukocyte Esterase Urine RBC Ur Squamous Epith Cells Urine HCG, Qual Urine Opiates Screen Urine Methadone Screen Ur Barbituates Screen Ur Phencyclidine Scrn Ur Amphetamines Screen U Benzodiazepines Scrn Urine Cocaine Screen U Marijuana (THC) Screen Plasma/Serum Alcohol 01/11/19 01/11/19 01/11/19 06:25 06:19 04:25 WBC RBC Hgb Hct MCV MCH MCHC RDW Plt Count MPV Neut % (Auto) Lymph % (Auto) [place] % (Auto) Eos % (Auto) Baso % (Auto) Neut # (Auto) Lymph # (Auto) [place] # (Auto) Eos # (Auto) Baso # (Auto) Total Counted Neutrophils % (Manual) Band Neutrophils % Lymphocytes % (Manual) Monocytes % (Manual) Platelet Estimate RBC Morphology ESR Specimen Source O2 % ABG pH ABG pCO2 ABG pO2 ABG HCO3 ABG Total CO2 ABG O2 Saturation ABG Base Excess Allan Test Sodium Potassium Chloride Carbon Dioxide Anion Gap BUN Creatinine Estimated Creat Clear Estimated GFR Est GFR ( Amer) Glucose POC Glucose 230 H Lactate 4.4 H 3.9 H Calcium Total Bilirubin AST ALT Alkaline Phosphatase Troponin I C-Reactive Protein Total Protein Albumin Globulin Albumin/Globulin Ratio Urine Color Urine Appearance Urine pH Ur Specific [place] Urine Protein Urine Glucose (UA) Urine Ketones Urine Blood Urine Nitrate Urine Bilirubin Urine Urobilinogen Ur Leukocyte Esterase Urine RBC Ur Squamous Epith Cells Urine HCG, Qual Urine Opiates Screen Urine Methadone Screen Ur Barbituates Screen Ur Phencyclidine Scrn Ur Amphetamines Screen U Benzodiazepines Scrn Urine Cocaine Screen U Marijuana (THC) Screen Plasma/Serum Alcohol 01/11/19 01/11/19 01/11/19 02:30 00:50 00:50 WBC RBC Hgb Hct MCV MCH MCHC RDW Plt Count MPV Neut % (Auto) Lymph % (Auto) [place] % (Auto) Eos % (Auto) Baso % (Auto) Neut # (Auto) Lymph # (Auto) [place] # (Auto) Eos # (Auto) Baso # (Auto) Total Counted Neutrophils % (Manual) Band Neutrophils % Lymphocytes % (Manual) Monocytes % (Manual) Platelet Estimate RBC Morphology ESR Specimen Source R/r O2 % 2 ABG pH 7.42 ABG pCO2 41.2 ABG pO2 69.3 L ABG HCO3 26.3 H ABG Total CO2 27.6 H ABG O2 Saturation 93 ABG Base Excess 1.9 Allan Test Y Sodium Potassium Chloride Carbon Dioxide Anion Gap BUN Creatinine Estimated Creat Clear Estimated GFR Est GFR ( Amer) Glucose POC Glucose Lactate Calcium Total Bilirubin AST ALT Alkaline Phosphatase Troponin I C-Reactive Protein Total Protein Albumin Globulin Albumin/Globulin Ratio Urine Color Urine Appearance Urine pH Ur Specific [place] Urine Protein Urine Glucose (UA) Urine Ketones Urine Blood Urine Nitrate Urine Bilirubin Urine Urobilinogen Ur Leukocyte Esterase Urine RBC Ur Squamous Epith Cells Urine HCG, Qual Negative Urine Opiates Screen Negative Urine Methadone Screen Negative Ur Barbituates Screen Negative Ur Phencyclidine Scrn Negative Ur Amphetamines Screen Negative U Benzodiazepines Scrn Negative Urine Cocaine Screen Negative U Marijuana (THC) Screen Negative Plasma/Serum Alcohol 01/11/19 01/11/19 01/11/19 00:50 00:30 00:30 WBC RBC Hgb Hct MCV MCH MCHC RDW Plt Count MPV Neut % (Auto) Lymph % (Auto) [place] % (Auto) Eos % (Auto) Baso % (Auto) Neut # (Auto) Lymph # (Auto) [place] # (Auto) Eos # (Auto) Baso # (Auto) Total Counted Neutrophils % (Manual) Band Neutrophils % Lymphocytes % (Manual) Monocytes % (Manual) Platelet Estimate RBC Morphology ESR Specimen Source O2 % ABG pH ABG pCO2 ABG pO2 ABG HCO3 ABG Total CO2 ABG O2 Saturation ABG Base Excess Allan Test Sodium Potassium Chloride Carbon Dioxide Anion Gap BUN Creatinine Estimated Creat Clear Estimated GFR Est GFR ( Amer) Glucose POC Glucose Lactate 3.9 H Calcium Total Bilirubin AST ALT Alkaline Phosphatase Troponin I C-Reactive Protein Total Protein Albumin Globulin Albumin/Globulin Ratio Urine Color Yellow Urine Appearance Clear Urine pH 6.0 Ur Specific [place] 1.010 Urine Protein Negative Urine Glucose (UA) Negative Urine Ketones Negative Urine Blood 3+ Urine Nitrate Negative Urine Bilirubin Negative Urine Urobilinogen 0.2 Ur Leukocyte Esterase Negative Urine RBC 50-100 Ur Squamous Epith Cells 3-5 Urine HCG, Qual Urine Opiates Screen Urine Methadone Screen Ur Barbituates Screen Ur Phencyclidine Scrn Ur Amphetamines Screen U Benzodiazepines Scrn Urine Cocaine Screen U Marijuana (THC) Screen Plasma/Serum Alcohol 0 01/11/19 01/11/19 00:30 00:30 WBC 17.3 H RBC 4.25 Hgb 12.7 Hct 39.3 MCV 92.5 MCH 29.9 MCHC 32.4 RDW 16.8 Plt Count 328 MPV 8.1 Neut % (Auto) 85.7 H Lymph % (Auto) 9.5 L [place] % (Auto) 4.0 Eos % (Auto) 0.5 Baso % (Auto) 0.3 Neut # (Auto) 14.9 H Lymph # (Auto) 1.6 [place] # (Auto) 0.7 Eos # (Auto) 0.1 Baso # (Auto) 0.1 Total Counted 100 Neutrophils % (Manual) 83 H Band Neutrophils % 7.0 Lymphocytes % (Manual) 7 L Monocytes % (Manual) 3 Platelet Estimate Normal RBC Morphology Normal ESR 20 Specimen Source O2 % ABG pH ABG pCO2 ABG pO2 ABG HCO3 ABG Total CO2 ABG O2 Saturation ABG Base Excess Allan Test Sodium 139 Potassium 3.8 Chloride 100 Carbon Dioxide 26 Anion Gap 16.8 H BUN 10 Creatinine 1.11 H Estimated Creat Clear 52 Estimated GFR 55 L Est GFR ( Amer) 67 Glucose 184 H POC Glucose Lactate Calcium 9.5 Total Bilirubin 0.3 AST 24 ALT 58 Alkaline Phosphatase 106 Troponin I < 0.02 C-Reactive Protein 3.5 H Total Protein 6.5 Albumin 3.2 L Globulin 3.3 H Albumin/Globulin Ratio 1.0 L Urine Color Urine Appearance Urine pH Ur Specific [place] Urine Protein Urine Glucose (UA) Urine Ketones Urine Blood Urine Nitrate Urine Bilirubin Urine Urobilinogen Ur Leukocyte Esterase Urine RBC Ur Squamous Epith Cells Urine HCG, Qual Urine Opiates Screen Urine Methadone Screen Ur Barbituates Screen Ur Phencyclidine Scrn Ur Amphetamines Screen U Benzodiazepines Scrn Urine Cocaine Screen U Marijuana (THC) Screen Plasma/Serum Alcohol DS: Diagnosis - Discharge Diagnosis (1) Acute on chronic respiratory failure with hypoxemia Status: Acute (2) COPD exacerbation Status: Acute (3) Foot ulcer, left Status: Chronic (4) Pain Status: Acute (5) Chronic steroid use Status: Chronic (6) Morbid obesity Status: Chronic (7) Umbilical hernia Status: Chronic (8) SIRS (systemic inflammatory response syndrome) Status: Acute Discharge Plan - Patient Discharge Instructions Patient Instructions: Chronic Obstructive Pulmonary Disease, DI for Chronic Obstructive Pulmonary Disease, DI for Sepsis -- Adult - Follow up Plan Home Medications: Home Medications Medication Instructions Recorded Confirmed Type Albuterol Sulfate [Albuterol HFA 2 puff INHALATION Q4-6H PRN 02/25/18 01/11/19 History Inhaler] Baclofen 10 mg PO BID 02/25/18 01/11/19 History Pantoprazole Sodium [Protonix 40mg 40 mg PO BID 02/25/18 01/11/19 History tablet] Amitriptyline HCl [Elavil 50mg 25 mg PO BID 12/22/18 01/11/19 History tablet] Bumetanide [Bumex 1mg tablet] 1 mg PO TID 12/22/18 01/11/19 History Fluoxetine HCl [Prozac 20mg 20 mg PO DAILY 12/22/18 01/11/19 History Capsule] Ipratropium/Albuterol Sulfate 3 ml IH Q4HP PRN 12/22/18 01/11/19 History [Duoneb 3mL neb] LORazepam [Ativan 1mg tablet] 1 mg PO 5XDAY PRN 12/22/18 01/11/19 History Spironolactone [Spironolactone 25 mg PO BID 12/22/18 01/11/19 History 25mg Tablet] Metformin HCl 500 mg PO BID 12/23/18 01/11/19 History Promethazine HCl 1 - 2 tab PO Q6HP PRN 12/23/18 01/11/19 History Oxycodone HCl/Acetaminophen 1 tab PO BID PRN 01/04/19 01/11/19 History [Percocet 5/325mg tablet] Budesonide/Formoterol Fumarate 10.2 gm IH BID 01/11/19 01/11/19 History [Symbicort 160-4.5 Mcg Inhaler] Gabapentin 800 mg PO QID 01/11/19 01/11/19 History Potassium Chloride [Klor-Con M20] 20 meq PO DAILY 01/11/19 01/11/19 History Pregabalin 50 mg PO TID 01/11/19 01/11/19 History hydrOXYzine pamoate [Hydroxyzine 50 mg PO Q8HP PRN 01/11/19 01/11/19 History Pamoate] predniSONE [Prednisone 5mg 5 mg PO DAILY 01/11/19 01/11/19 History Tab] Prescriptions/Medication Reconciliation: No Action Pantoprazole Sodium [Protonix 40mg tablet] 40 mg PO BID Baclofen 10 mg PO BID Albuterol Sulfate [Albuterol HFA Inhaler] 2 puff INHALATION Q4-6H PRN PRN Reason: Dyspnea Bumetanide [Bumex 1mg tablet] 1 mg PO TID LORazepam [Ativan 1mg tablet] 1 mg PO 5XDAY PRN PRN Reason: Anxiety Spironolactone [Spironolactone 25mg Tablet] 25 mg PO BID Fluoxetine HCl [Prozac 20mg Capsule] 20 mg PO DAILY Amitriptyline HCl [Elavil 50mg tablet] 25 mg PO BID Metformin HCl 500 mg PO BID predniSONE [Prednisone 5mg Tab] 5 mg PO DAILY Budesonide/Formoterol Fumarate [Symbicort 160-4.5 Mcg Inhaler] 10.2 gm IH BID Pregabalin 50 mg PO TID hydrOXYzine pamoate [Hydroxyzine Pamoate] 50 mg PO Q8HP PRN PRN Reason: Anxiety Potassium Chloride [Klor-Con M20] 20 meq PO DAILY Ipratropium/Albuterol Sulfate [Duoneb 3mL neb] 3 ml IH Q4HP PRN PRN Reason: Shortness Of Breath Promethazine HCl 1 - 2 tab PO Q6HP PRN PRN Reason: Nausea And Vomiting Oxycodone HCl/Acetaminophen [Percocet 5/325mg tablet] 1 tab PO BID PRN PRN Reason: foot pain Gabapentin 800 mg PO QID - Problem Reconciliation Problems Reviewed?: Yes
--- NOTE | 2019-01-12 18:02 | Electrocardiograph Report ---
APPROVED REPORT Exam: Resting ECG HR:117 bpm ECG Measurements Heart Rate 117 AXES SD 134 P 52 QRSd 78 QRS 11 QT 328 T58 QTc 457 <Conclusion> Sinus tachycardia Possible Left atrial enlargement Low voltage QRS Borderline ECG Electronically signed by : Jesus Prater, 01/12/2019 18:01:54
== END 2019-01-11 15:15 | disposition left against medical advice (07) ==
LOC: ER 23:48 → 2ND 23:48
PROVIDERS: ADMIT Internal Medicine Adolescent Medicine; ATTEND Internal Medicine Adolescent Medicine
CPT/HCPCS: 36415; 70450; 71020; 71046; 74176; 80048; 80053; 80305; 81001; 81025; 82803; 82962; 83605; 84484; 85007; 85025; 85651; 86140; 87040; 93005; 94640; 94761; 99283; G0378; J1956; J2405; J2543

== ENCOUNTER 2019-03-13 09:51 | Observation (INO) ==
--- NOTE | 2019-03-13 10:09 | Emergency Department Note ---
ED Disposition Clinical Impression: Severe sepsis, COPD exacerbation Disposition: Admitted As Inpatient Condition on Discharge: Serious Referrals: Soha Lund [Primary Care Provider] - - Critical Care Critical Care Time: No Attestation: On 03/13/19, the high probability of a clinically significant, sudden or life threatening deterioration of the following system(s) required my full and direct attention, intervention and personal management. The time I documented below is in addition to time spent performing reported procedures but includes the following listed in this critical care notation. Medical Decision Making - Cesar Inquiry Pt receiving controlled substance: No Vital Signs: 03/13/19 10:04 03/13/19 10:12 03/13/19 10:40 Temperature 98.7 F Temperature Source Oral Pulse Rate 114 H Pulse Rate [Left Radial] 144 H 128 H Respiratory Rate 36 H Blood Pressure [Right Arm] 137/73 137/73 Blood Pressure Mean [Right Arm] 94 94 Blood Pressure Source [Right Arm] Automatic Cuff Blood Pressure Position [Right Arm] Sitting Sitting 02 Sat by Pulse Oximetry 94 L 98 Oxygen Delivery Method Room Air Room Air Nasal Cannula Oxygen Flow Rate (LPM) 2 03/13/19 11:30 03/13/19 12:00 03/13/19 12:30 Temperature Temperature Source Pulse Rate Pulse Rate [Left Radial] 119 H 119 H 119 H Respiratory Rate 22 Blood Pressure [Right Arm] 128/83 123/80 119/89 Blood Pressure Mean [Right Arm] 98 94 99 Blood Pressure Source [Right Arm] Blood Pressure Position [Right Arm] Sitting Sitting 02 Sat by Pulse Oximetry Oxygen Delivery Method Oxygen Flow Rate (LPM) - Lab Data Lab Results 03/13/19 10:29: Specimen Source Right radial, O2 % 28%, ABG pH 7.47 H, ABG pCO2 37.0, ABG pO2 58.7 L, ABG HCO3 26.1 H, ABG Total CO2 27.3 H, ABG O2 Saturation 92, ABG Base Excess 2.4 H, Allan Test Acceptable 03/13/19 10:36: WBC 14.5 H, RBC 4.46, Hgb 13.8, Hct 43.5, MCV 97.7, MCH 30.9, MCHC 31.6 L, RDW 13.8, Plt Count 253, MPV 8.8, Neut % (Auto) 91.8 H, Lymph % (Auto) 5.2 L, [place] % (Auto) 2.4, Eos % (Auto) 0.3, Baso % (Auto) 0.3, Neut # (Auto) 13.3 H, Lymph # (Auto) 0.8, [place] # (Auto) 0.4, Eos # (Auto) 0.1, Baso # (Auto) 0.0, Total Counted 100, Neutrophils % (Manual) 89 H, Band Neutrophils % 1.0, Lymphocytes % (Manual) 9 L, Monocytes % (Manual) 1 L, Platelet Estimate Normal, Tear Drop Cells 1+, Stomatocytes 1+ 03/13/19 10:36: Sodium 141, Potassium 3.7, Chloride 100, Carbon Dioxide 28, Anion Gap 16.7 H, BUN 12, Creatinine 1.15 H, Estimated Creat Clear 51, Estimated GFR 53 L, Est GFR ( Amer) 64, Glucose 216 H, Calcium 8.8, Total Bilirubin 0.5, AST 121 H, ALT 132 H, Alkaline Phosphatase 114, Troponin I < 0.02, Total Protein 6.3 L, Albumin 3.1 L, Globulin 3.2, Albumin/Globulin Ratio 1.0 L, Lipase 205 03/13/19 10:36: Lactate 5.3 H 03/13/19 10:36: B-Natriuretic Peptide 34 03/13/19 10:36: Influenza Type A Ag Negative, Influenza Type B Ag Negative 03/13/19 10:36: Serum HCG, Qual Negative 03/13/19 14:03: Urine Color Yellow, Urine Appearance Clear, Urine pH 6.5, Ur Specific [place] 1.020, Urine Protein Negative, Urine Glucose (UA) Negative, Urine Ketones Negative, Urine Blood Negative, Urine Nitrate Negative, Urine Bilirubin Negative, Urine Urobilinogen 0.2, Ur Leukocyte Esterase Negative, Urine RBC None, Urine WBC None, Ur Squamous Epith Cells 5-10, Urine Bacteria Trace Result diagrams: 03/13/19 10:36 03/13/19 10:36 Orders (Tests/Meds): ED MEDICATIONS Generic Name Dose Route Start Last Admin Trade Name Freq PRN Reason Stop Dose Admin Sodium Chloride 3,810 mls @ 999 mls/hr 03/13/19 11:45 03/13/19 11:25 Sod Chlor 0.9% 1000ml Bag IV 03/13/19 15:33 999 mls/hr .Q3H49M AZIZA Administration Levofloxacin/Dextrose 750 mg in 150 mls @ 100 mls/hr 03/13/19 11:45 03/13/19 11:36 Levofloxacin 750mg/150ml Premix IV 03/27/19 11:44 100 mls/hr Q24H AZIZA Administration Protocol Discontinued Medications Generic Name Dose Route Start Last Admin Trade Name Freq PRN Reason Stop Dose Admin Hydrocodone Bitart/Acetaminophen 1 tab 03/13/19 11:28 03/13/19 11:29 [place] 5/325mg Tablet PO 03/13/19 11:29 1 tab ONCE ONE Administration Albuterol/Ipratropium 3 ml 03/13/19 10:30 03/13/19 10:40 Duoneb 3ml Neb IH 03/13/19 10:31 3 ml ONCE ONE Administration Methylprednisolone Sodium Succinate 125 mg 03/13/19 10:30 03/13/19 10:34 Solu-Medrol 125mg/2ml Vial IV 03/13/19 10:31 125 mg ONCE ONE Administration Promethazine HCl 12.5 mg 03/13/19 10:47 03/13/19 10:56 Phenergan 25mg/Ml 1ml Vial IV 03/13/19 10:48 12.5 mg ONCE ONE Administration Promethazine HCl 12.5 mg 03/13/19 10:47 03/13/19 10:57 Phenergan 25mg/Ml 1ml Vial IV 03/13/19 10:48 Not Given ONCE ONE Sodium Chloride 25 ml 03/13/19 10:47 03/13/19 10:57 Sod Chlor 0.9% 25ml Bag IV 03/13/19 10:48 Not Given ONCE ONE Sodium Chloride 25 ml 03/13/19 10:47 03/13/19 10:56 Sod Chlor 0.9% 25ml Bag IV 03/13/19 10:48 25 ml ONCE ONE Administration ORDERS Category Date Time Status Lactic Acid Follow Up (RFLX 1) Stat Lab 03/13/19 14:45 Ordered Blood Culture Stat Micro 03/13/19 11:30 Received - Radiology Data #1 Image(s): Chest Image Reviewed: Yes I reviewed the patient's radiology image, Yes I have reviewed radiologist's interpretation FINDINGS: The cardiomediastinal silhouette and pulmonary vascularity are within normal limits. There remains increased density in the left lung base. This is consistent with a combination prominent pericardial fat pad and mild left basilar atelectasis as seen on recent exams and recent CT scan. No lobar consolidation or collapse is evident. No acute bony abnormalities. IMPRESSION: Chronic changes left lung base. No change with no acute finding Dictated by: Allan Sabillon MD 03/13/2019 11:46 Electronically signed by Allan Sabillon MD in [place] 03/13/2019 11:46 - CT Data CT Scan: Abdomen, Pelvis Time Received: 13:[address] Reviewed: Yes: I discussed the CT results w/the radiologist Findings Narrative: Air in soft tissues of left abdominal wall. No other acute process. No stranding or inflammation around the air to suggest infection. Findings are consistent clinically with the open incision noted on exam. - ECG Data Tracing #1 EKG interpreted by Christiano Monsalve MD: Rhythm: sinus Rate: 120 [place]: normal Ectopy: none Conduction: normal ST Segment Changes: none T Wave Changes: Nonspecific Q Waves: none No evidence of acute ischemia or injury Baseline artifact present, but I consider the EKG adequate for accurate interpretation. - Physician Consults Physician Consulted: Roly Time: 15:04 Reason -: Admission Comment/Response: Agrees to admit the patient to the hospital. We discussed the patient's clinical information, including history, exam, laboratory and radio logy results and ED course. Per hospital procedure, I will write temporary bridge inpatient orders on the patient. Specific orders requested by the admitting physician: Admit to Dr. Holder. Continue antibiotics, steroids, nebulizer treatments. Medical Decision Narrative: Reviewed recent visits as well as [facility] portal. Has had [address] scans at this facility for abdominal pain and vomiting on 02/14/2019 and 02/26/2019. Was put on Omnicef and Zithromax on 02/26/2019 emergency department visit here. Seen in the emergency department here on 12/22/2018 and admitted through 12/26/2018 for respiratory problems. Seen here in the emergency department by me on 01/04/2019 and transferred to [facility] for respiratory problems. 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 She was discharged the next day. Seen here in the emergency department on 01/11/2019 and admitted for respiratory problems and problems with umbilical hernia, but signed out AGAINST MEDICAL ADVICE the same day. Seen here in the emergency department on 02/07/2019 for abdominal and respiratory problems. Seen here in the emergency department on 02/14/2019 and 02/26/2019 for abdominal pain, vomiting, respiratory problems. General Adult HPI - General Stated complaint: SOA, vomiting Time Seen by Provider: 03/13/19 10:09 - History of Present Illness HPI narrative: Patient complains of coughing, wheezing and shortness of breath, "my guts". States that she had to have emergency surgery at [facility] 2-1/2 weeks ago for hernia. She says she then developed a cough shortness of breath and wheezing. She has seen her primary care doctor multiple times and has been on several courses of antibiotics and steroid tapers. She says she is chronically on prednisone 10 mg a day, steroids were increased and then tapered back down a couple of times. She has been on multiple cough medications which have not helped. States she uses DuoNeb treatments and in between these has been ins tructed to use plain albuterol treatments. States that she has been vomiting and this caused 1 of her incisions on her abdomen open last night and she woke up with blood on her clothes. She also wants to be checked for the flu. Also says she is retaining fluid. She said she was going to call her doctor today to see if she could get on Tussionex, but she says that her mother is being seen here today by Dr. Corrales and she decided to come to the emergency room "to get this taken care of". She has a document management technician at [place]. Her primary care doctor is at [place]. She says she is in the process of trying to change to using Dr. Nicole as her primary care provider. - Related Data Home Medications Medication Instructions Recorded Confirmed Albuterol Sulfate [Albuterol HFA 2 puff INHALATION Q4-6H PRN 02/25/18 02/26/19 Inhaler] Baclofen 10 mg PO BID 02/25/18 02/26/19 Pantoprazole Sodium [Protonix 40mg 40 mg PO BID 02/25/18 02/26/19 tablet] Amitriptyline HCl [Elavil 50mg 25 mg PO BID 12/22/18 02/26/19 tablet] Bumetanide [Bumex 1mg tablet] 1 mg PO TID 12/22/18 02/26/19 Fluoxetine HCl [Prozac 20mg 20 mg PO DAILY 12/22/18 02/26/19 Capsule] Ipratropium/Albuterol Sulfate 3 ml IH Q4HP PRN 12/22/18 02/26/19 [Duoneb 3mL neb] LORazepam [Ativan 1mg tablet] 1 mg PO 5XDAY PRN 12/22/18 02/26/19 Spironolactone [Spironolactone 25 mg PO BID 12/22/18 02/26/19 25mg Tablet] Metformin HCl 500 mg PO BID 12/23/18 02/26/19 Promethazine HCl 1 - 2 tab PO Q6HP PRN 12/23/18 02/26/19 Oxycodone HCl/Acetaminophen 1 tab PO BID PRN 01/04/19 02/26/19 [Percocet 5/325mg tablet] Budesonide/Formoterol Fumarate 10.2 gm IH BID 01/11/19 02/26/19 [Symbicort 160-4.5 Mcg Inhaler] Gabapentin 800 mg PO QID 01/11/19 02/26/19 Potassium Chloride [Klor-Con M20] 20 meq PO DAILY 01/11/19 02/26/19 Pregabalin 50 mg PO TID 01/11/19 02/26/19 hydrOXYzine pamoate [Hydroxyzine 50 mg PO Q8HP PRN 01/11/19 02/26/19 Pamoate] predniSONE [Prednisone 5mg 5 mg PO DAILY 01/11/19 02/26/19 Tab] Metoclopramide HCl [Reglan 5mg 5 mg PO TID 02/26/19 02/26/19 Tablet] Sulfamethoxazole/Trimethoprim 1 each PO BID 02/26/19 02/26/19 [Bactrim DS tablet] Previous Rx's Medication Instructions Recorded Hydrocodone/Acetaminophen [[place] 1 tab PO TID PRN 3 Days #8 tab 02/07/19 7.5-325 Tablet] Hydrocodone/Acetaminophen [[place] 1 tab PO QID PRN 3 Days #10 tab 02/14/19 10-325 Tablet] Ondansetron HCl [Zofran 8mg Tab] 8 mg PO TID 3 Days #10 tab 02/14/19 Promethazine HCl [Phenergan 25mg 25 mg PO Q6H PRN 3 Days #8 tab 02/14/19 tab] Azithromycin [Z-Iván 250mg Tab*] 250 mg PO UD DOSE PK #6 tab 02/26/19 Cefdinir [Omnicef 300mg Capsule] 300 mg PO BID #14 cap 02/26/19 Allergies Allergy/AdvReac Type Severity Reaction Status Date / Time haloperidol [From Haldol] Allergy Severe extrapyrimidal Verified 02/07/19 13:18 effects Iodinated Contrast Media - Allergy Severe Anaphylaxis Verified 02/07/19 13:18 Oral and shellfish derived Allergy Severe Anaphylaxis Verified 02/07/19 13:18 cyclobenzaprine Allergy Intermediate Hives Verified 02/07/19 13:18 [From FLEXERIL] ketorolac [From TORADOL] Allergy Intermediate Hives Verified 02/07/19 13:18 [facility] History - Hepatitis A Screen Attestation statement:: This patient has been screened for Hepatitis A risk factors. I have reviewed the patient's past medical history: Yes Medical History: Reports:: Arrhythmia, Cardiomyopathy, Congestive Heart Failure, Diabetes Mellitus Type 2, Hypertension, Palpitations Denies:: Cancer, Diabetes Mellitus Type 1, MRSA Other Surgeries: Yes: Cholecystectomy, Amputation: No Fractures: Yes (RIBS) - Social History Smoking Status: Never smoker Tobacco Type: cigarettes # Packs/Day (cigarettes): 0 Alcohol Intake: never Alcohol Intake Frequency:: 3 or more drinks per day Substance Use Type: denies use Occupational Status: disabled Housing: house Household Members: none Family Hx:: Asthma, Cancer, Diabetes, Heart Attack, Hypertension, Stroke ROS Obtained: Yes All systems reviewed & no additional complaints - Constitutional Constitutional: Denies fever(s) - Respiratory Respiratory: Yes cough, Yes dyspnea, Yes wheezing - Gastrointestinal Gastrointestingal: Reports: abdominal pain, vomiting Physical Exam - General General appearance: alert, in no apparent distress, anxious Comment: Rapid, pressured speech. Frequent coughing. - Head Head exam: atraumatic, normocephalic - Eye Eye exam: Present: normal appearance, EOMI - ENT ENT exam: Present: mucous membranes moist - Neck Neck exam: Present: normal inspection, trachea midline - Chest Chest inspection: Present: normal inspection - Respiratory Respiratory exam: Present: wheezes - Cardiovascular Cardiovascular exam: Present: normal rhythm, tachycardia, normal heart sounds - Abdominal Exam Abdominal exam: Present: soft Comment: 1.5 cm laparoscopic incision left lower abdomen with minimal separation of wound edges approximately 2 mm without bleeding or signs of infection. - Extremities Exam Extremities exam: Present: normal inspection - Neurological Exam Neurological exam: Present: alert, oriented X3 - Psychiatric Psychiatric exam: Present: anxious - Skin Skin exam: Present: warm, dry
[2019-03-13 11:01] LABS: Basophils % 0.3 % (0.1-2.0); Eosinophils # 0.1 K/mm3 (0.0-0.4); Eosinophils % 0.3 % (0.1-12.0); Hematocrit 43.5 % (37.0-47.0); Hemoglobin 13.8 g/dL (12.2-16.2); Lymphocytes # 0.8 K/mm3 (0.7-4.5); Lymphocytes % 5.2 % (10-50); Mean Corpuscular HGB Conc 31.6 g/dL (31.8-35.4); Mean Corpuscular Volume 97.7 fl (81-99); Mean Platelet Volume 8.8 fl (7.4-10.4); Monocytes # 0.4 K/mm3 (0.1-1.0); Monocytes % 2.4 % (1.7-9.3); Neutrophils # 13.3 K/mm3 (1.8-7.8); Neutrophils % 91.8 % (37.0-80.0); Platelet Count 253 K/mm3 (142-424); Red Blood Count 4.46 M/mm3 (4.20-5.40); Red Cell Distribution Width 13.8 % (11.5-17.5); White Blood Count 14.5 K/mm3 (4.8-10.8)
[2019-03-13 11:10] LABS: Alanine Aminotransferase 132 U/L (12-78); Albumin Level 3.1 gm/dL (3.4-5.0); Alkaline Phosphatase 114 U/L (46-116); Anion Gap 16.7 mEq/L (5-15); Aspartate Amino Transferase 121 U/L (15-37); Bilirubin,Total 0.5 mg/dL (0.2-1.0); Blood Urea Nitrogen 12 mg/dL (7-18); Calcium 8.8 mg/dL (8.5-10.1); Carbon Dioxide 28 mmol/L (21.0-32.0); Chloride 100 mmol/L (98-107); Globulin 3.2 gm/dl (1.3-3.2); Glucose 216 mg/dL (74-106); Sodium 141 mmol/L (136-145); Total Protein,Serum 6.3 gm/dL (6.4-8.2)
[2019-03-13 11:19] LABS: Lymphocytes % 9 % (10-50); Monocytes % 1 % (2-9); Neutrophils % 89 % (42-76); Stomatocytes 1+; Tear Drop Cells 1+; Total Cells Counted 100
[2019-03-13 12:07] LABS: ABG Base Excess 2.4 mmol/L (-2.4-2.3); ABG HCO3 26.1 mmhg (22.0-26.0); ABG Oxygen Saturation 92 % (90-100); ABG PH 7.47 mmol/L (7.35-7.45); ABG PO2 58.7 mmhg (80-100); ABG TCO2 27.3 mmhg (23-27)
[2019-03-13 12:10] LABS: Allen's Test Acceptable; Oxygen 28% %
--- NOTE | 2019-03-13 13:36 | Electrocardiograph Report ---
APPROVED REPORT Exam: Resting ECG HR:120 bpm ECG Measurements Heart Rate 120 AXES [place] 120 P 55 QRSd 74 QRS 17 QT 306 T62 QTc 432 <Conclusion> Sinus tachycardia Possible Left atrial enlargement Nonspecific T wave abnormality Abnormal ECG Electronically signed by : Ham Rodrigues, 03/13/2019 13:36:07
[2019-03-13 14:08] LABS: Appearance,Urine CLEAR (Clear); Bilirubin,Urine Negative (Negative); Blood, Urine Negative (Negative); Color,Urine YELLOW (Yellow); Glucose,Urine (UA) Negative (Negative); Ketones,Urine Negative (Negative); Leukocyte Esterase,Urine Negative (Negative); Microscopic, Urine URINE MICROSCOPIC (MICROSCOPIC); PH,Urine 6.5 (5.0-8.5); Protein,Urine Negative (Negative); Urobilinogen,Urine 0.2 EU/dl (0.2)
[2019-03-13 14:27] LABS: Bacteria,Urine Trace /lpf
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
--- NOTE | 2019-03-14 09:21 | Progress Note ---
Internal Medicine - PN: Subj *Date: 03/14/19 *Time: :19 Interval history: She seems to be feeling better. She complains that she is not getting enough to eat. She is not on her usual dose of Valium. Exam Vital signs and Labs for Last 24 Hours: Temp Pulse Resp BP Pulse Ox 98.4 F 114 H 20 133/83 95 03/14/19 07:45 03/14/19 07:45 03/14/19 07:45 03/14/19 07:45 03/14/19 07:45 Laboratory Results - last 24 hr 03/13/19 10:29: Specimen Source Right radial, O2 % 28%, ABG pH 7.47 H, ABG pCO2 37.0, ABG pO2 58.7 L, ABG HCO3 26.1 H, ABG Total CO2 27.3 H, ABG O2 Saturation 92, ABG Base Excess 2.4 H, Allan Test Acceptable 03/13/19 10:36: WBC 14.5 H, RBC 4.46, Hgb 13.8, Hct 43.5, MCV 97.7, MCH 30.9, MCHC 31.6 L, RDW 13.8, Plt Count 253, MPV 8.8, Neut % (Auto) 91.8 H, Lymph % (Auto) 5.2 L, [place] % (Auto) 2.4, Eos % (Auto) 0.3, Baso % (Auto) 0.3, Neut # (Auto) 13.3 H, Lymph # (Auto) 0.8, [place] # (Auto) 0.4, Eos # (Auto) 0.1, Baso # (Auto) 0.0, Total Counted 100, Neutrophils % (Manual) 89 H, Band Neutrophils % 1.0, Lymphocytes % (Manual) 9 L, Monocytes % (Manual) 1 L, Platelet Estimate Normal, Tear Drop Cells 1+, Stomatocytes 1+ 03/13/19 10:36: Sodium 141, Potassium 3.7, Chloride 100, Carbon Dioxide 28, Anion Gap 16.7 H, BUN 12, Creatinine 1.15 H, Estimated Creat Clear 51, Estimated GFR 53 L, Est GFR ( Amer) 64, Glucose 216 H, Calcium 8.8, Total Bilirubin 0.5, AST 121 H, ALT 132 H, Alkaline Phosphatase 114, Troponin I < 0.02, Total Protein 6.3 L, Albumin 3.1 L, Globulin 3.2, Albumin/Globulin Ratio 1.0 L, Lipase 205 03/13/19 10:36: Lactate 5.3 H 03/13/19 10:36: B-Natriuretic Peptide 34 03/13/19 10:36: Influenza Type A Ag Negative, Influenza Type B Ag Negative 03/13/19 10:36: Serum HCG, Qual Negative 03/13/19 14:03: Urine Color Yellow, Urine Appearance Clear, Urine pH 6.5, Ur Specific [place] 1.020, Urine Protein Negative, Urine Glucose (UA) Negative, Urine Ketones Negative, Urine Blood Negative, Urine Nitrate Negative, Urine Bilirubin Negative, Urine Urobilinogen 0.2, Ur Leukocyte Esterase Negative, Urine RBC None, Urine WBC None, Ur Squamous Epith Cells 5-10, Urine Bacteria Trace 03/13/19 14:57: Lactate 8.2 H 03/13/19 17:30: Lactate 6.8 H 03/14/19 00:45: POC Glucose 228 H I & O for Last 24 hours: Intake & Output 03/11/19 03/12/19 03/13/19 03/14/19 11:59 11:59 11:59 11:59 Intake Total 815 / 815 Output Total 1800 / 1800 Balance -985 / -985 Weight 280 lb 291 lb 0.163 oz - Constitutional no acute distress, morbidly obese - *Routine Respiratory Exam Present: decreased breath sounds, wheezes (Some) - *Routine Cardiovascular Exam Present: tachycardia (Sinus) - *Routine Abdominal Exam Present: obese Comments: Dressing left lower abdomen - *Routine Extremities Exam Present: edema (2+) - *Routine Neurological Exam Present: alert, oriented X3 Assessment and Plan (1) COPD exacerbation Current visit: Yes Status: Acute Category: Medical Code(s): J44.1 - Chronic obstructive pulmonary disease with (acute) exacerbation (2) Lactic acid acidosis Current visit: Yes Status: Acute Category: Medical Code(s): E87.2 - Acidosis (3) Abdominal contusion Current visit: No Status: Acute Qualifiers: Encounter type: initial encounter Qualified Code(s): S30.1XXA - Contusion of abdominal wall, initial encounter Category: Medical Code(s): S30.1XXA - Contusion of abdominal wall, initial encounter (4) Chronic steroid use Current visit: No Status: Chronic Category: Medical (5) Morbid obesity Current visit: No Status: Chronic Category: Medical Code(s): E66.01 - Morbid (severe) obesity due to excess calories (6) History of hernia repair Current visit: Yes Status: Chronic Category: Surgical Code(s): Z98.890 - Other specified postprocedural states; Z87.19 - Personal history of other diseases of the digestive system - Assessment and plan all Dx Assessment and Plan for all problems:: See orders. Diazepam 10 mg 3 times daily.
[2019-03-14 10:16] LABS: Basophils % 0.1 % (0.1-2.0); Eosinophils # 0.3 K/mm3 (0.0-0.4); Eosinophils % 1.9 % (0.1-12.0); Hematocrit 36.9 % (37.0-47.0); Lymphocytes # 0.8 K/mm3 (0.7-4.5); Lymphocytes % 4.6 % (10-50); Mean Corpuscular HGB Conc 31.8 g/dL (31.8-35.4); Mean Corpuscular Volume 97.5 fl (81-99); Mean Platelet Volume 11.3 fl (7.4-10.4); Monocytes # 0.5 K/mm3 (0.1-1.0); Monocytes % 2.6 % (1.7-9.3); Neutrophils # 15.9 K/mm3 (1.8-7.8); Neutrophils % 90.8 % (37.0-80.0); Platelet Count 195 K/mm3 (142-424); Red Blood Count 3.79 M/mm3 (4.20-5.40); Red Cell Distribution Width 13.8 % (11.5-17.5); White Blood Count 17.5 K/mm3 (4.8-10.8)
--- NOTE | 2019-03-14 10:32 | Pharmacy Consult Notes ---
[facility] Pharmacy VTE Monitoring - Patient Demographics Admission date: 03/13/19 Report Date: 03/14/19 Time: 10:31 Allergies/Adverse Reactions: Patient Allergies haloperidol [From Haldol] Allergy (Severe, Verified 02/07/19 13:18) extrapyrimidal effects Iodinated Contrast Media - Oral and Allergy (Severe, Verified 02/07/19 13:18) Anaphylaxis shellfish derived Allergy (Severe, Verified 02/07/19 13:18) Anaphylaxis cyclobenzaprine [From FLEXERIL] Allergy (Intermediate, Verified 02/07/19 13:18) Hives ketorolac [From TORADOL] Allergy (Intermediate, Verified 02/07/19 13:18) Hives Height: 1.55 m Weight: 132 kg Patient Problems: Current Active Problems COPD exacerbation (Acute) Severe sepsis (Acute) Lactic acid acidosis (Acute) History of hernia repair (Chronic) - VTE Risk Labs: VTE Related Lab Results Hgb 13.8 g/dL (12.2-16.2) 03/13/19 10:36 Hct 43.5 % (37.0-47.0) 03/13/19 10:36 Plt Count 253 K/mm3 (142-424) 03/13/19 10:36 BUN 12 mg/dL (7-18) 03/13/19 10:36 Creatinine 1.15 mg/dL (0.55-1.02) H 03/13/19 10:36 Estimated Creat Clear 51 mL/min (50-200) 03/13/19 10:36 VTE Score: 3 VTE Risk Level: Low Risk - Prophylaxis VTE Prophylaxis Ordered?: Yes Types of VTE Prophylaxis: TEDS Knee High Location of Applied Device: Bilateral Lower Extremeties
[2019-03-14 11:37] LABS: Anion Gap 16.7 mEq/L (5-15); Calcium 8.8 mg/dL (8.5-10.1)
[2019-03-14 12:54] LABS: Lymphocytes % 3 % (10-50); Monocytes % 3 % (2-9); Neutrophils % 94 % (42-76); Total Cells Counted 100
[2019-03-14 12:55] LABS: Hemoglobin 11.8 g/dL (12.2-16.2); RBC Morphology Normal
--- NOTE | 2019-03-15 08:58 | Progress Note ---
Internal Medicine - PN: Subj *Date: 03/15/19 *Time: 08:56 Interval history: She is feeling better today and actually would like to go home if possible. She seems very comfortable. Her heart rate remains elevated and her blood pressure is elevated. We discussed this and discussed placing her on medication. Metoprolol would help her blood pressure as well as her anxiety level. She is breathing easier and resting easier. Exam Vital signs and Labs for Last 24 Hours: Temp Pulse Resp BP Pulse Ox 98.3 F 116 H 18 155/92 H 96 03/15/19 07:35 03/15/19 07:35 03/15/19 07:35 03/15/19 07:35 03/15/19 07:35 Laboratory Results - last 24 hr 03/13/19 20:35: POC Glucose 188 H 03/14/19 05:57: POC Glucose 218 H 03/14/19 10:09: WBC 17.5 H, RBC 3.79 L, Hgb 11.8 L D, Hct 36.9 L, MCV 97.5, MCH 31.0, MCHC 31.8, RDW 13.8, Plt Count 195, MPV 11.3 H, Neut % (Auto) 90.8 H, Lymph % (Auto) 4.6 L, [place] % (Auto) 2.6, Eos % (Auto) 1.9, Baso % (Auto) 0.1, Neut # (Auto) 15.9 H, Lymph # (Auto) 0.8, [place] # (Auto) 0.5, Eos # (Auto) 0.3, Baso # (Auto) 0.0, Total Counted 100, Neutrophils % (Manual) 94 H, Lymphocytes % (Manual) 3 L, Monocytes % (Manual) 3, Platelet Estimate Normal, RBC Morphology N ormal 03/14/19 10:09: Sodium 139, Potassium 4.7 D, Chloride 103, Carbon Dioxide 24, Anion Gap 16.7 H, BUN 15, Creatinine 1.03 H, Estimated Creat Clear 56, Estimated GFR 60, Est GFR ( Amer) 73, Glucose 230 H, Calcium 8.8 03/14/19 10:44: POC Glucose 233 H 03/14/19 15:39: POC Glucose 287 H 03/14/19 19:54: POC Glucose 236 H 03/15/19 03:29: POC Glucose 288 H 03/15/19 06:29: POC Glucose 256 H I & O for Last 24 hours: Intake & Output 03/12/19 03/13/19 03/14/19 03/15/19 11:59 11:59 11:59 11:59 Intake Total 935 / 935 2731 / 2731 Output Total 1800 / 1800 3600 / 3600 Balance -865 / -865 -869 / -869 Weight 280 lb 291 lb 0.163 oz 278 lb 3.574 oz - Constitutional no acute distress - *Routine Respiratory Exam Present: decreased breath sounds, CTA bilaterally - *Routine Cardiovascular Exam Present: tachycardia - *Routine Abdominal Exam Present: soft, obese, wound - *Routine Extremities Exam Present: edema (1+) Assessment and Plan (1) COPD exacerbation Current visit: Yes Status: Acute Category: Medical Code(s): J44.1 - Chronic obstructive pulmonary disease with (acute) exacerbation (2) Lactic acid acidosis Current visit: Yes Status: Acute Category: Medical Code(s): E87.2 - A cidosis (3) Abdominal contusion Current visit: No Status: Acute Qualifiers: Encounter type: initial encounter Qualified Code(s): S30.1XXA - Contusion of abdominal wall, initial encounter Category: Medical Code(s): S30.1XXA - Contusion of abdominal wall, initial encounter (4) Chronic steroid use Current visit: No Status: Chronic Category: Medical (5) Morbid obesity Current visit: No Status: Chronic Category: Medical Code(s): E66.01 - Morbid (severe) obesity due to excess calories (6) History of hernia repair Current visit: Yes Status: Chronic Category: Surgical Code(s): Z98.890 - Other specified postprocedural states; Z87.19 - Personal history of other diseases of the digestive system (7) Hypertension Current visit: Yes Status: Chronic Category: Medical Code(s): I10 - Essential (primary) hypertension (8) Sinus tachycardia Current visit: Yes Status: Acute Category: Medical Code(s): R00.0 - Tachycardia, unspecified - Assessment and plan all Dx Assessment and Plan for all problems:: Add metoprolol. Consider discharge today or tomorrow.
[2019-03-15 09:24] LABS: Basophils # 0.1 K/mm3 (0-0.2); Basophils % 0.2 % (0.1-2.0); Eosinophils # 0.2 K/mm3 (0.0-0.4); Eosinophils % 0.7 % (0.1-12.0); Hematocrit 38.4 % (37.0-47.0); Hemoglobin 12.4 g/dL (12.2-16.2); Lymphocytes # 0.5 K/mm3 (0.7-4.5); Lymphocytes % 2.6 % (10-50); Mean Corpuscular HGB Conc 32.4 g/dL (31.8-35.4); Mean Corpuscular Volume 97.2 fl (81-99); Mean Platelet Volume 9.2 fl (7.4-10.4); Monocytes # 0.5 K/mm3 (0.1-1.0); Monocytes % 2.3 % (1.7-9.3); Neutrophils # 18.7 K/mm3 (1.8-7.8); Neutrophils % 94.1 % (37.0-80.0); Platelet Count 206 K/mm3 (142-424); Red Blood Count 3.95 M/mm3 (4.20-5.40); Red Cell Distribution Width 13.7 % (11.5-17.5); White Blood Count 19.8 K/mm3 (4.8-10.8)
[2019-03-15 09:36] LABS: Anion Gap 16.3 mEq/L (5-15); Calcium 8.7 mg/dL (8.5-10.1)
[2019-03-15 09:43] LABS: Lymphocytes % 3 % (10-50); Monocytes % 1 % (2-9); Neutrophils % 96 % (42-76); Total Cells Counted 100
[2019-03-15 09:44] LABS: Stomatocytes 2+; Tear Drop Cells 1+
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
== END 2019-03-15 15:20 | disposition home or self-care (01) ==
LOC: ER 09:51 → 2ND 15:19 → INTOOBSV 17:02 → 2ND 17:02
PROVIDERS: ADMIT Family Medicine; ATTEND Family Medicine
CPT/HCPCS: 36415; 71020; 71046; 74176; 80048; 80053; 81001; 82803; 82962; 83605; 83690; 83880; 84484; 84703; 85007; 85025; 87040; 87275; 87276; 93005; 94640; 94761; 96374; 96375; 96376; 99285; G0378; J1956

== ENCOUNTER 2020-09-26 20:22 | Emergency (ER) | payer MEDICAID, SELFPAY ==
[2020-09-26 20:23] VITALS: BP 143/99; PULSE 128; RESP 22; TEMP 37.2; O2SAT 94; BMI 45.7
[2020-09-26 22:09] LABS: Chloride 104 mmol/L (98-107); Sodium 137 mmol/L (136-145)
[2020-09-26 22:12] LABS: Alanine Aminotransferase 285 U/L (12-78); Albumin Level 3.6 g/dl (3.5-5.0); Albumin/Globulin Ratio 1.4 (1.1-1.8); Alkaline Phosphatase 253 U/L (38-126); Amylase 56 U/L (30-110); Aspartate Amino Transferase 135 U/L (14-36); Blood Urea Nitrogen 15 mg/dl (7-17); Calcium 8.9 mg/dl (8.4-10.2); Carbon Dioxide 24 mmol/L (22.0-30.0); Creatinine Clearance Estimated 67 mL/min (50-200); Estimated Glomerular Filt Rate 70 ml/min (>60); GFR (African American) 85 ML/MIN (>60); Globulin 2.5 g/dL (1.3-3.2); Glucose 157 mg/dl (74-100); Lipase 70 U/L (23-300); Total Protein,Serum 6.1 g/dl (6.3-8.2)
[2020-09-26 22:15] LABS: C-Reactive Protein 15.5 mg/L (0-4)
[2020-09-26 22:17] LABS: Basophils % 0.2 % (0.1-2.0); Eosinophils % 0.1 % (0.1-12.0); Hematocrit 37.9 % (37.0-47.0); Hemoglobin 11.9 g/dL (12.2-16.2); Lymphocytes # 1.5 K/mm3 (0.7-4.5); Lymphocytes % 6.4 % (10-50); Mean Corpuscular HGB Conc 31.4 g/dL (31.8-35.4); Mean Corpuscular Hemoglobin 25.3 pg (27.0-31.2); Mean Corpuscular Volume 80.4 fl (81-99); Mean Platelet Volume 8.3 fl (7.4-10.4); Monocytes # 0.7 K/mm3 (0.1-1.0); Neutrophils # 21.4 K/mm3 (1.8-7.8); Neutrophils % 90.4 % (37.0-80.0); Platelet Count 282 K/mm3 (142-424); Red Blood Count 4.72 M/mm3 (4.20-5.40); Red Cell Distribution Width 17.3 % (11.5-17.5); White Blood Count 23.7 K/mm3 (4.8-10.8)
[2020-09-26 22:24] LABS: MANUAL DIFFERENTIAL MANUAL DIFFERENTIAL (MANUAL DIFF)
[2020-09-26 22:27] LABS: HCG Qualitative, Serum Negative (Negative)
--- NOTE | 2020-09-26 22:30 | CT_ITS ---
PROCEDURE INFORMATION: Exam: CT Abdomen And Pelvis Without Contrast Exam date and time: 09/26/2020 10:30 PM Age: 39 years old Clinical indication: Abdominal pain; Epigastric; Prior surgery; Surgery date: 6+ months; Surgery type: Gb hernia and c sections; Patient HX: Abdomen pain, SOB, diabetic and a red sore spot on abdomen in the rlq area no drainage from that spot at this time; Additional info: Belly pain TECHNIQUE: Imaging protocol: Computed tomography of the abdomen and pelvis without contrast. Radiation optimization: All CT scans at this facility use at least one of these dose optimization techniques: automated exposure control; mA and/or kV adjustment per patient size (includes targeted exams where dose is matched to clinical indication); or iterative reconstruction. COMPARISON: CT ABDOMEN PELVIS WO CON 04/07/2019 12:20 PM FINDINGS: Limitations: Patient motion. Liver: Hepatomegaly measures 23 cm. Hepatic steatosis. Gallbladder and bile ducts: Previous cholecystectomy. Pancreas: Normal. No ductal dilation. Spleen: Normal. No splenomegaly. Adrenal glands: Normal. No mass. Kidneys and ureters: Punctate nonobstructing left renal calculus. No hydronephrosis. Stomach and bowel: Unremarkable. No obstruction. No mucosal thickening. Appendix: No evidence of appendicitis. Intraperitoneal space: Unremarkable. No free air. No significant fluid collection. Vasculature: Vascular calcification. There are several phleboliths within the pelvis. Lymph nodes: Unremarkable. No enlarged lymph nodes. Urinary bladder: Unremarkable as visualized. Reproductive: Unremarkable as visualized. Bones/joints: Chronic bilateral rib fractures. There are mild degenerative changes involving the spine. Soft tissues: Unremarkable. IMPRESSION: Patient motion without definite acute abnormality.
[2020-09-26 22:32] VITALS: BP 142/82; PULSE 107; RESP 25; O2SAT 91
[2020-09-26 22:46] LABS: Lactic Acid 2.6 mmol/L (0.7-2.1)
[2020-09-26 22:46] LABS: Procalcitonin 0.143 ng/mL (0.0-2.0)
[2020-09-26 23:00] LABS: Erythrocyte Sedimentation Rate 10 mm/hr (0-20)
[2020-09-26 23:03] LABS: Lymphocytes % 5 % (10-50); Monocytes % 1 % (2-9); Neutrophils % 94 % (42-76); Platelet Estimate Normal; Stomatocytes 1+; Total Cells Counted 100
[2020-09-26 23:40] VITALS: BP 143/83; PULSE 104; RESP 24; O2SAT 89
--- NOTE | 2020-09-26 23:58 | HMH.EDNVD ---
ED Disposition Clinical Impression: Morbid obesity Cellulitis Qualifiers: Site of cellulitis: trunk Site of cellulitis of trunk: abdominal wall Qualified Code(s): L03.311 - Cellulitis of abdominal wall Hepatitis C Qualifiers: Viral hepatitis chronicity: unspecified Hepatic coma status: without hepatic coma Qualified Code(s): B19.20 - Unspecified viral hepatitis C without hepatic coma Diabetes mellitus Qualifiers: Diabetes mellitus type: type 2 Diabetes mellitus machine long goods helper insulin use: unspecified correction insulin use status Diabetes mellitus complication status: with other specified complication Qualified Code(s): E11.69 - Type 2 diabetes mellitus with other specified complication GERD (gastroesophageal reflux disease) Qualifiers: Esophagitis presence: esophagitis presence not specified Qualified Code(s): K21.9 - Gastro-esophageal reflux disease without esophagitis COPD (chronic obstructive pulmonary disease) Qualifiers: COPD type: unspecified COPD Qualified Code(s): J44.9 - Chronic obstructive pulmonary disease, unspecified Disposition: Home, Self-Care Condition on Discharge: Fair Instructions: DI for Cellulitis -- Adult Additional Instructions: resume current treatment Referrals: Provider,Referral, MD [Primary Care Provider] - - Critical Care Critical Care Time: No Attestation: On 09/26/20, the high probability of a clinically significant, sudden or life threatening deterioration of the following system(s) required my full and direct attention, intervention and personal management. The time I documented below is in addition to time spent performing reported procedures but includes the following listed in this critical care notation. Medical Decision Making - Medical Records Medical records reviewed: Yes: I reviewed the patient's medical records. - Cesar Inquiry Pt receiving controlled substance: No Vital Signs: 09/26/20 20:23 09/26/20 22:32 09/26/20 23:40 Temperature 99.0 F Temperature Source Oral Pulse Rate 107 H 104 H Pulse Rate [Left Radial] 128 H Respiratory Rate 22 25 H 24 Blood Pressure 142/82 H 143/83 H Blood Pressure [Right Arm] 143/99 H Blood Pressure Mean 91 92 Blood Pressure Mean [Right Arm] 113 Blood Pressure Source [Right Arm] Automatic Cuff Blood Pressure Position [Right Arm] Sitting 02 Sat by Pulse Oximetry 94 L 91 L 89 L Oxygen Delivery Method Room Air Room Air Room Air 09/27/20 00:00 09/27/20 00:30 Temperature Temperature Source Pulse Rate 104 H 99 H Pulse Rate [Left Radial] Respiratory Rate 22 Blood Pressure 125/74 117/74 Blood Pressure [Right Arm] Blood Pressure Mean 90 Blood Pressure Mean [Right Arm] Blood Pressure Source [Right Arm] Blood Pressure Position [Right Arm] 02 Sat by Pulse Oximetry 91 L 89 L Oxygen Delivery Method Room Air Room Air - Lab Data Lab results reviewed: Yes: I reviewed the patient's lab results. Lab Results 09/26/20 21:50: Sodium 137, Potassium 4.0, Chloride 104, Carbon Dioxide 24, Anion Gap 13.0, BUN 15, Creatinine 0.90, Estimated Creat Clear 67, Estimated GFR 70, Est GFR ( Amer) 85, Glucose 157 H, Calcium 8.9, Total Bilirubin 1.0, AST 135 H, ALT 285 H, Alkaline Phosphatase 253 H, C-Reactive Protein 15.5 H, Total Protein 6.1 L, Albumin 3.6, Globulin 2.5, Albumin/Globulin Ratio 1.4, Amylase 56, Lipase 70 09/26/20 21:50: Procalcitonin 0.143 09/26/20 22:08: WBC 23.7 H*, RBC 4.72, Hgb 11.9 L, Hct 37.9, MCV 80.4 L, MCH 25.3 L, MCHC 31.4 L, RDW 17.3, Plt Count 282, MPV 8.3, Neut % (Auto) 90.4 H, Lymph % (Auto) 6.4 L, [place] % (Auto) 3.0, Eos % (Auto) 0.1, Baso % (Auto) 0.2, Neut # (Auto) 21.4 H, Lymph # (Auto) 1.5, [place] # (Auto) 0.7, Eos # (Auto) 0.0, Baso # (Auto) 0.0, Total Counted 100, Neutrophils % (Manual) 94 H, Lymphocytes % (Manual) 5 L, Monocytes % (Manual) 1 L, Platelet Estimate Normal, Stomatocytes 1+ 09/26/20 22:08: ESR 10 09/26/20 22:08: Serum HCG, Qual Negative 09/26/20 22:15: Lactate 2.6 H
[2020-09-27] VITALS: BP 125/74; PULSE 104; RESP 22; O2SAT 91
[2020-09-27 00:30] VITALS: BP 117/74; PULSE 99; O2SAT 89
[2020-09-27 01:29] VITALS: BP 123/45; PULSE 75; RESP 18; TEMP 36.8; O2SAT 96
[2020-09-27 01:45] VITALS: PULSE 100; PULSE 104
== END 2020-09-27 02:02 | disposition home or self-care (01) ==
PROVIDERS: Emergency Provider Emergency Medicine
DX: L03.311 Cellulitis of abdominal wall (principal); B19.20 Unspecified viral hepatitis C without hepatic coma; E11.65 Type 2 diabetes mellitus with hyperglycemia; K21.9 Gastro-esophageal reflux disease without esophagitis; J44.9 Chronic obstructive pulmonary disease, unspecified; E66.01 Morbid (severe) obesity due to excess calories; Z68.42 Body mass index [BMI] 45.0-49.9, adult; Z79.899 Other long term (current) drug therapy
CPT/HCPCS: 74176; 80053; 82150; 83605; 83690; 84145; 84703; 85007; 85025; 85651; 86140; 87040; 96365; 96375; 99283; J2405

== ENCOUNTER 2020-11-22 14:38 | Emergency (ER) | payer MEDICAID, SELFPAY ==
--- NOTE | 2020-11-22 | XR_ITS ---
PROCEDURE: XR FOOT RT MIN 3V CLINICAL INDICATION: foot pain, fall 3 days ago COMPARISON: CR Foot L from 11/23/2018 CR XR FOOT LT MIN 3V from 12/22/2018 FINDINGS: No acute fractures or dislocations. Bone density is normal. The visualized tarsals, metatarsals and phalanges are unremarkable. Soft tissue swelling on the dorsum of the foot noted. IMPRESSION: No acute fractures or dislocations. Soft tissue swelling over the dorsum of the foot. Dictated by: Heidi Queen 11/22/2020 15:56 Heidi Queen in OV 11/22/2020 15:56
[2020-11-22 14:41] VITALS: BP 120/83; PULSE 95; RESP 22; TEMP 37.6; O2SAT 96; BMI 43.9
--- NOTE | 2020-11-22 15:05 | XR_ITS ---
PROCEDURE: XR CHEST PORTABLE CLINICAL HISTORY: cough COMPARISON: CT CT CHEST WO CON from 02/07/2019 CR XR CHEST 2V from 03/13/2019 CR XR CHEST 2V from 04/07/2019 CR XR RIBS RT MIN 3V W CXR1V from 06/04/2019 FINDINGS: The cardiomediastinal silhouette and pulmonary vascularity are within normal limits. Subsegmental atelectasis noted in the left lower zone. No lobar consolidation, pleural effusions or pneumothorax. No acute bony abnormalities. IMPRESSION: Subsegmental atelectasis noted in the left lower zone. No lobar consolidation. Dictated by: Heidi Queen 11/22/2020 15:58 Heidi Queen in OV 11/22/2020 15:58
--- NOTE | 2020-11-22 15:06 | HMH.EDGENADL ---
ED Disposition Clinical Impression: Swelling of right foot Contusion of right foot Qualifiers: Encounter type: subsequent encounter Qualified Code(s): S90.31XD - Contusion of right foot, subsequent encounter Disposition: Home, Self-Care Condition on Discharge: Fair Instructions: DI for Acute Pain -- Adult, DI for Peripheral Edema -- Bilateral, How To Perform RICE (Rest, Ice, Compress, Elevate) Additional Instructions: You have been evaluated for swelling of the right foot. No fracture or other bony abnormality identified. Please follow-up with your primary care doctor and orthopedics. Take Tylenol and Motrin for pain. [place] for extreme pain. Use compression and elevation. Return to the emergency department for any new or worsening symptoms. Referrals: Anahi Maldonado MD [Primary Care Provider] - Time of Disposition: 16:21 - Critical Care Critical Care Time: No Attestation: On 11/22/20, the high probability of a clinically significant, sudden or life threatening deterioration of the following system(s) required my full and direct attention, intervention and personal management. The time I documented below is in addition to time spent performing reported procedures but includes the following listed in this critical care notation. Medical Decision Making - Medical Records Medical records reviewed: Yes: I reviewed the patient's medical records. - Cesar Inquiry Pt receiving controlled substance: No Vital Signs: 11/22/20 14:41 11/22/20 15:50 Temperature 99.7 F H Temperature Source Oral Pulse Rate 90 Pulse Rate [Right] 95 H Respiratory Rate 22 Blood Pressure [Right Arm] 120/83 Blood Pressure Mean [Right Arm] 95 Blood Pressure Source [Right Arm] Automatic Cuff 02 Sat by Pulse Oximetry 96 Oxygen Delivery Method Room Air - Lab Data Lab Results 11/22/20 15:37: WBC 14.4 H, RBC 4.23, Hgb 11.2 L, Hct 34.1 L, MCV 80.6 L, MCH 26.5 L, MCHC 32.8, RDW 17.8 H, Plt Count 175, MPV 8.8, Neut % (Auto) 88.4 H, Lymph % (Auto) 7.3 L, [place] % (Auto) 3.8, Eos % (Auto) 0.1, Baso % (Auto) 0.4, Neut # (Auto) 12.7 H, Lymph # (Auto) 1.1, [place] # (Auto) 0.5, Eos # (Auto) 0.0, Baso # (Auto) 0.1 11/22/20 15:37: Sodium 138, Potassium 4.4, Chloride 102, Carbon Dioxide 27, Anion Gap 13.4, BUN 11, Creatinine 0.50 L, Estimated Creat Clear 121, Estimated GFR 138, Est GFR ( Amer) 167, Glucose 188 H, Calcium 8.3 L, Total Bilirubin 0.5, AST 123 H, ALT 179 H, Alkaline Phosphatase 148 H, Total Protein 5.5 L, Albumin 3.0 L, Globulin 2.5, Albumin/Globulin Ratio 1.2 Result diagrams: 11/22/20 15:37 11/22/20 15:37 Orders (Tests/Meds): ED MEDICATIONS Discontinued Medications Generic Name Dose Route Start Last Admin Trade Name Freq PRN Reason Stop Dose Admin Hydrocodone Bitart/Acetaminophen 1 tab 11/22/20 15:38 11/22/20 15:42 Hydrocodone/Apap 5/325 Mg Tablet PO 11/22/20 15:39 1 tab ONCE ONE Administration Albuterol/Ipratropium 3 ml 11/22/20 15:38 11/22/20 15:50 Ipratropium/Albuterol 3 Ml Neb IH 11/22/20 15:39 3 ml ONCE ONE Administration Ondansetron HCl 4 mg 11/22/20 15:38 Ondansetron 4mg Odt SL 11/22/20 15:39 ONCE ONE ORDERS Category Date Time Status Complete Blood Count Auto Diff Stat Lab 11/22/20 15:37 Results Urinalysis and Microscopic Stat Lab 11/22/20 15:05 Ordered - Radiology Data #1 Image(s): Foot/Toes Image Reviewed: Yes I reviewed the patient's radiology results, Yes I have reviewed radiologist's interpretation Preliminary Findings: Normal/NAD Right foot x-ray IMPRESSION: No acute fractures or dislocations. Soft tissue swelling over the dorsum of the foot. Medical Decision Narrative: In summary this is a 39-year-old female presenting to the emergency department with right foot pain after a fall 2 days ago. Patient clinically stable on arrival. Vital signs within normal limits. Turn for dependent edema, missed fracture, contusion, sprain, st
[2020-11-22 15:50] VITALS: PULSE 90; PULSE 97
[2020-11-22 15:50] LABS: Basophils # 0.1 K/mm3 (0-0.2); Basophils % 0.4 % (0.1-2.0); Eosinophils % 0.1 % (0.1-12.0); Hematocrit 34.1 % (37.0-47.0); Hemoglobin 11.2 g/dL (12.2-16.2); Lymphocytes # 1.1 K/mm3 (0.7-4.5); Lymphocytes % 7.3 % (10-50); Mean Corpuscular HGB Conc 32.8 g/dL (31.8-35.4); Mean Corpuscular Hemoglobin 26.5 pg (27.0-31.2); Mean Corpuscular Volume 80.6 fl (81-99); Mean Platelet Volume 8.8 fl (7.4-10.4); Monocytes # 0.5 K/mm3 (0.1-1.0); Monocytes % 3.8 % (1.7-9.3); Neutrophils # 12.7 K/mm3 (1.8-7.8); Neutrophils % 88.4 % (37.0-80.0); Platelet Count 175 K/mm3 (142-424); Red Blood Count 4.23 M/mm3 (4.20-5.40); Red Cell Distribution Width 17.8 % (11.5-17.5); White Blood Count 14.4 K/mm3 (4.8-10.8)
[2020-11-22 15:53] LABS: Alanine Aminotransferase 179 U/L (12-78); Albumin/Globulin Ratio 1.2 (1.1-1.8); Alkaline Phosphatase 148 U/L (38-126); Anion Gap 13.4 mEq/L (5-15); Aspartate Amino Transferase 123 U/L (14-36); Bilirubin,Total 0.5 mg/dl (0.2-1.3); Blood Urea Nitrogen 11 mg/dl (7-17); Calcium 8.3 mg/dl (8.4-10.2); Carbon Dioxide 27 mmol/L (22.0-30.0); Chloride 102 mmol/L (98-107); Creatinine Clearance Estimated 121 mL/min (50-200); Estimated Glomerular Filt Rate 138 ml/min (>60); GFR (African American) 167 ML/MIN (>60); Globulin 2.5 g/dL (1.3-3.2); Glucose 188 mg/dl (74-100); Potassium 4.4 mmoL/L (3.5-5.1); Sodium 138 mmol/L (136-145); Total Protein,Serum 5.5 g/dl (6.3-8.2)
[2020-11-22 15:55] LABS: MANUAL DIFFERENTIAL MANUAL DIFFERENTIAL (MANUAL DIFF)
[2020-11-22 16:35] LABS: Hypochromasia 1+; Lymphocytes % 14 % (10-50); Monocytes % 6 % (2-9); Neutrophils % 80 % (42-76); Total Cells Counted 100
[2020-11-22 16:36] LABS: Platelet Estimate Normal
[2020-11-22 17:00] VITALS: BP 132/89; PULSE 79; RESP 18; TEMP 36.9; O2SAT 96
--- NOTE | 2020-11-22 17:16 | PC.NURSE ---
SPOKE WITH [facility] IN [place] AND CANCELLED THE [facility] AND DR CARRINGTON RESENT IT TO [facility] IN [place]
== END 2020-11-22 17:05 | disposition home or self-care (01) ==
PROVIDERS: Emergency Provider Emergency Medicine; PCP Family Medicine
DX: S90.31XD Contusion of right foot, subsequent encounter (principal); M79.89 Other specified soft tissue disorders; J44.9 Chronic obstructive pulmonary disease, unspecified; E11.9 Type 2 diabetes mellitus without complications; F17.210 Nicotine dependence, cigarettes, uncomplicated; I10 Essential (primary) hypertension; I50.9 Heart failure, unspecified; Z79.899 Other long term (current) drug therapy
CPT/HCPCS: 71045; 73630; 80053; 85007; 85025; 96374; 99282